=== PATIENT | female | born 1925 | race Caucasian/White ===

== ENCOUNTER → 2016-07-17 | Outpatient (CLI) | payer OTHER ==
[~2016-07-17] MED LIST: ANSHCS PR; DOCU-94 PO; ERGO500037 PO; HERBAL LAXATIVE; IBUP-1277 PO; LSN/10125 PO; LXP10 PO; PRED10TA PO; TRAM-10 PO; XRL20 PO
[2016-07-17 13:17] LABS: BLOOD UREA NITROGEN 22 mg/dl (7-18); BUN/CREATININE RATIO 22.3 (10-20); CARBON DIOXIDE 30 mmol/L (21-32); CHLORIDE 108 mmol/L (98-107); CREATININE 0.99 mg/dl (0.60-1.20); GLUCOSE 109 mg/dl (70-99); POTASSIUM 3.7 mmol/L (3.5-5.1); SODIUM 145 mmol/L (136-145)
== END | disposition home or self-care (01) ==
LOC: C.LABPVFM 08:20
PROVIDERS: ATTEND Nurse Practitioner
DX: E55.9 Vitamin D deficiency, unspecified (principal); I10 Essential (primary) hypertension

== ENCOUNTER 2016-09-01 17:07 | Emergency (ER) | payer OTHER ==
[~2016-09-01 17:07] MED LIST changes: -ANSHCS PR; -DOCU-94 PO; -ERGO500037 PO; -LXP10 PO; -PRED10TA PO; -TRAM-10 PO; -XRL20 PO
[2016-09-01 17:12] VITALS: TEMP 36.4; Ht 162.6 cm
[2016-09-01 18:05] LABS: HEMATOCRIT 50.1 % (37-47); MEAN CORPUSCULAR HEMOGLOBIN 31.9 pg (25-34); MEAN CORPUSCULAR HGB CONC 33.9 g/dl (32-36); MEAN PLATELET VOLUME 10.8 fL (7.4-10.4); PLATELET COUNT 321 K/uL (130-400); RED BLOOD COUNT 5.33 M/uL (4.2-5.4); WHITE BLOOD COUNT 9.34 K/uL (4.8-10.8)
[2016-09-01] MEDS ORDERED: DOCU-94 PO (18:49)
[2016-09-01] MEDS ORDERED: ANSHCS PR (18:49)
--- NOTE | 2016-09-01 18:50 | EMERGENCY ROOM VISIT NOTE ---
History Report prepared by Laura: Shama Carver Under the Supervision of: Dr. Alhaji Beck M.D. First contact with patient: 17:36 Chief Complaint: PAIN (GENERALIZED) Stated Complaint: SCIATICA AND RECTAL PAIN History of Present Illness The patient is a 89 year old female who presents to the Emergency Room with complaints of persistent constipation starting today. She also complains of rectal pain. She has a history of sciatica pain, hemorrhoids, and rectal surgeries. The patient is on Prednisone and Tramadol for sciatic pain. As per [id number], the patient has been feeling depressed since her in 2015. As per [id number], the patient becomes constipated when she is depressed. She tried to disimpact herself without relief. She was given MiraLAX and Milk of Magnesia without relief. She also complains of right hip pain radiating down the back of her right leg. The right hip pain is similar to her past sciatic pain. She is on Xarelto. She denies fevers, chills, or any other complaints. As per [id number], the patient is at her baseline mental status. Source of History: patient Onset: today Position: other (global) Quality: other (constipation) Timing: other (persistent) Modifying Factors (Relieving): other (MiraLAX and Milk of Magnesia without relief) Associated Symptoms: No fevers, No chills Review of Systems All systems have been listed, reviewed, and are negative other than those previously mentioned. Please see Additional Medical History Sheet. Past Medical & Surgical Medical Problems: (1) Benign hypertension (2) Blood Clots (3) Deep venous thrombosis (4) Pulmonary embolism Family History Diabetes mellitus FHx: cancer FHx: heart disease Hypertension Social History Smoking Status: Never Smoker Marital Status: Housing Status: lives with family Occupation Status: retired Current/Historical Medications Scheduled Ergocalciferol (Vitamin D 11121 Unit), 50,000 UNIT PO WK Hctz/Lisinopril (Lisinopril/Hctz 10/12.5 Mg), 1 TAB PO DAILY Prednisone (Prednisone), 0 PO UD Rivaroxaban (Xarelto), 20 MG PO DAILY Scheduled PRN Tramadol (Ultram), 50 MG PO Q8H PRN for Pain Allergies Coded Allergies: Adhesives (Verified Allergy, Intermediate, HIVES, 09/01/16) Morphine (Verified Adverse Reaction, Intermediate, NAUSEA, 09/01/16) Physical Exam Vital Signs Date Time Temp Pulse Resp B/P (MAP) Pulse Ox O2 Delivery O2 Flow Rate FiO2 09/01/16 18:52 84 125/79 96 09/01/16 17:12 36.4 88 18 90/72 93 Room Air Physical Exam GENERAL: Patient awake, alert, oriented x 3. Patient follows commands. Patient does not appear toxic. Patient is adequately hydrated and well- nourished. SKIN: No erythema, pallor, cyanosis or rash HEENT: Normal head, pupils equal, reactive to light and accommodation. Ears normal. LUNGS: Clear to auscultation. No wheezes, no rales, no rhonchi. HEART: No murmurs. No gallops. No rubs ABDOMEN: No masses, no rebound, no hepatomegaly or splenomegaly. RECTAL: Patient has external hemorrhoids which are currently not bleeding. Large amount of rocío-like stool in the rectum. Stool is brown and guaiac positive. EXTREMITIES: No signs of trauma. No pedal or pretibial edema. No calf or thigh tenderness. NEUROLOGIC: Cranial nerves II-XII within normal limits. No gross motor sensory function deficits. Medical Decision & Procedures Laboratory Results 09/01/16 17:55 Test 09/01/16 17:55 Red Blood Count 5.33 M/uL (4.2-5.4) Mean Corpuscular Volume 94.0 fL (80-100) Mean Corpuscular Hemoglobin 31.9 pg (25-34) Mean Corpuscular Hemoglobin Concent 33.9 g/dl (32-36) RDW Standard Deviation 47.1 fL (36.4-46.3) RDW Coefficient of Variation 13.7 % (11.5-14.5) Mean Platelet Volume 10.8 fL (7.4-10.4) Laboratory results as stated above per my review. ED Course 1736: Past medical records reviewed. The patient was evaluated in room A03. A complete history and physical examination was performed. 1916: Upon reevaluation, the patient appeared to have improvement of her symptoms. She had a small bowel movement in the Emergency Room. I discussed today's findings with the patient and her family. They verbalized agreement of the treatment plan. The patient was discharged home. Medical Decision Medication Reconciliation: I attest that I have personally reviewed the patient' s current medication list. Blood pressure Screening: Patient was found to have normal blood pressure on screening and does not require follow up. Differential diagnosis includes but is not limited to sciatica, constipation, anemia. Blood work was evaluated. Please see above. The patient was given a soapsuds enema with some relief. She was given a dose of MiraLAX here. I believe that she will be feeling much better when she has a good bowel movement. The patient was also encouraged to take Colace twice a day. Impression Primary Impression: Constipation Additional Impressions: Hemorrhoids Sciatica Scribe Attestation The scribe's documentation has been prepared under my direction and personally reviewed by me in its entirety. I confirm that the note above accurately reflects all work, treatment, procedures, and medical decision making performed by me. Departure Information Dispostion Home / Self-Care Referrals Bing Rivera C.R.N.P (PCP) Forms HOME CARE DOCUMENTATION FORM, IMPORTANT VISIT INFORMATION, WORK / SCHOOL INSTRUCTIONS Patient Instructions My [facility] Additional Instructions 1 Colace twice a day. Take a dose of MiraLAX if you have not had a bowel movement in the past 24 hours. One rectal suppository twice a day for the next 7 days. Follow-up with your family physician within the next 10 days. Problem Qualifiers
[2016-09-01] MEDS ORDERED: POLYETHYLENE (MIRALAX) 17 GM PACK PO ONE (19:30)
[2016-09-01] MEDS ORDERED: ERGO500037 PO (19:37)
[2016-09-01] MEDS ORDERED: LSN/10125 PO (19:37)
[2016-09-01] MEDS ORDERED: PRED10TA PO (19:38)
[2016-09-01] MEDS ORDERED: TRAM-10 PO (19:38)
[2016-09-01] MEDS ORDERED: XRL20 PO (19:38)
[2016-09-01 20:02] VITALS: BP 112/58; PULSE 73; O2SAT 99
== END 2016-09-01 20:02 | disposition home or self-care (01) ==
LOC: C.EDB 17:09 → C.EDA 20:02
DX: K59.00 Constipation, unspecified (principal); K64.9 Unspecified hemorrhoids; M54.30 Sciatica, unspecified side; I10 Essential (primary) hypertension; Z86.711 Personal history of pulmonary embolism; Z86.718 Personal history of other venous thrombosis and embolism; Z83.3 Family history of diabetes mellitus; Z82.49 Family history of ischemic heart disease and other diseases of the circulatory system; Z79.01 Long term (current) use of anticoagulants; Z79.899 Other long term (current) drug therapy

== ENCOUNTER 2016-09-10 19:25 | Inpatient (IN) | payer OTHER ==
[~2016-09-10] VITALS: Ht 162.6 cm; Wt 61.8 kg
[~2016-09-10 19:25] MED LIST changes: +ERGO500037 PO; -HERBAL LAXATIVE; -IBUP-1277 PO; +PRED10TA PO; +TRAM-10 PO; +XRL20 PO
[2016-09-10] MEDS ORDERED: SODIUM CHLORIDE 0.9% 1000ML 1,000 ML IV ONE (19:48)
[2016-09-10 20:17] LABS: URINE APPEARANCE CLEAR (CLEAR); URINE BILIRUBIN NEG (NEG); URINE COLOR DK YELLOW; URINE EPITHELIAL CELL AUTO >30 /lpf (0-5); URINE NITRITE NEG (NEG); URINE SPECIFIC GRAVITY 1.023 (1.000-1.030); UROBILINOGEN NEG (NEG)
[2016-09-10 20:20] LABS: MANUAL MICROSCOPIC REQUIRED? NO; REVIEW REQ? YES
--- NOTE | 2016-09-10 20:24 | EMERGENCY ROOM VISIT NOTE ---
History Report prepared by Laura: Itz Hodgson Under the Supervision of: Dr. Bean Lin D.O. First contact with patient: 19:37 Chief Complaint: FALL Stated Complaint: MULTI FALLS History of Present Illness The patient is an 89 year old female who presents to the Emergency Room with complaints of intermittent falls occurring this morning. The patient's caregiver states that the patient has been very weak the past couple of days, and the patient fell multiple times this morning. The patient is having rectal pain and abdominal pain from constipation, and she gets dizzy when she stands up and a slight headache. The patient denies any urinary symptoms. The caregiver states that the patient has only had a bottle of Boost today. The patient was recently in the ER for constipation, and she was given an enema. The patient states that she has issues with her feet including bolts in her feet and skin graft and stitches. Source of History: patient, caregiver Onset: this morning Position: other (global) Quality: other (fall) Timing: intermittent Associated Symptoms: + headache, + abdominal pain, No urinary symptoms Note: Associated symptoms: rectal pain and dizziness. Review of Systems See HPI for pertinent positives & negatives. A total of 10 systems reviewed and were otherwise negative. Past Medical & Surgical Medical Problems: (1) Acute diverticulitis (2) Benign hypertension (3) Blood Clots (4) Deep venous thrombosis (5) Hypercalcemia (6) Pulmonary embolism Family History Diabetes mellitus FHx: cancer FHx: heart disease Hypertension Social History Smoking Status: Former Smoker Marital Status: Housing Status: lives with family Occupation Status: retired Current/Historical Medications Scheduled Ergocalciferol (Vitamin D 26529 Unit), 50,000 UNIT PO WK Hctz/Lisinopril (Lisinopril/Hctz 10/12.5 Mg), 1 TAB PO DAILY Rivaroxaban (Xarelto), 20 MG PO DAILY Scheduled PRN Tramadol (Ultram), 50 MG PO Q8H PRN for Pain Allergies Coded Allergies: Adhesives (Verified Allergy, Intermediate, HIVES, 09/10/16) Morphine (Verified Adverse Reaction, Intermediate, NAUSEA, 09/10/16) Physical Exam Vital Signs Date Time Temp Pulse Resp B/P (MAP) Pulse Ox O2 Delivery O2 Flow Rate FiO2 09/10/16 23:11 77 16 94/58 100 09/10/16 23:02 79 09/10/16 22:13 84 18 108/56 97 Room Air 85 106/63 09/10/16 20:57 80 18 100/54 97 Room Air 09/10/16 19:56 Room Air 09/10/16 19:32 79 09/10/16 19:27 36.7 77 18 94/61 98 Room Air Physical Exam GENERAL: Patient is awake, alert, and somewhat frail appearing. EYES: Post-surgical changes noted on the pupils. Mucous membranes are dry. The conjunctivae are clear. The pupils are round and reactive. EARS, NOSE, MOUTH AND THROAT: The nose is without any evidence of any deformity. Mucous membranes are moist tongue is midline NECK: The neck is nontender and supple. RESPIRATORY: Normal respiratory effort is noted there is no evidence of wheezing rhonchi or rales CARDIOVASCULAR: Regular rate and rhythm noted there no murmurs rubs or gallops normal S1 normal S2 GASTROINTESTINAL: The abdomen is mildly distended and diffusely tender. No guarding or rigidity. BACK: No midline tenderness or or step-off noted range of motion in flexion extension as well as rotation no signs of muscle spasm noted MUSCULOSKELETAL/EXTREMITIES: There is no evidence of gross deformity full range of motion is noted in the hips and shoulders SKIN: Pedal edema bilaterally. No signs of cellulitis. NEUROLOGIC: Patient is oriented to person, place, and situation. Follows commands. Strength is diminished symmetrically. Medical Decision & Procedures ER Provider Diagnostic Interpretation: Radiology results as stated below per my review and radiologist interpretation: CT OF THE HEAD WITHOUT CONTRAST CLINICAL HISTORY: Fall. COMPARISON STUDY: MRI of the brain May 22, 2010. TECHNIQUE: Helical axial images of the head were obtained without IV contrast. Automated exposure control was utilized for the study. A dose lowering technique was utilized adhering to the principles of ALARA. FINDINGS: No acute intracranial hemorrhage is present. A heavily calcified extra-axial mass with suprasellar extension is similar to MRI of May 22, 2010. This measures 2.2 x 1.8 cm. There are no additional intracranial masses. Ventricular system is stable. Basilar cisterns are patent. White matter hypodensity suggests small vessel disease. There are no findings to suggest acute dural sinus thrombosis or acute territorial infarct. There is no calvarial fracture. There is mucosal thickening with secretions within the right sphenoid sinus and right posterior ethmoid air cells. This was shown on prior MRI. This is likely chronic. IMPRESSION: 1. No acute intracranial findings. 2. No significant change in the heavily calcified extra-axial mass since MRI of May 22, 2010. This is consistent with a planum sphenoidale meningioma. 3. No calvarial fracture. 4. Right sphenoid and right posterior ethmoid sinusitis which is likely chronic. Electronically signed by: Steve Reyes M.D. 09/10/2016 9:23 PM Dictated Date/Time: 09/10/2016 9:16 PM CHEST ONE VIEW PORTABLE CLINICAL HISTORY: Sepsis. COMPARISON STUDY: Chest radiograph March 20, 2013. 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 A moderate hiatal hernia is noted. Cardiac size is normal. There is no evidence of pulmonary edema. There is no consolidation. No pneumothorax or pleural effusion is identified. IMPRESSION: 1. No acute cardio pelvic findings. 2. Moderate sized hiatal hernia. Electronically signed by: Steve Reyes M.D. 09/10/2016 8:37 PM Dictated Date/Time: 09/10/2016 8:35 PM ANGIO ABD/PELVIS WITH CONTRAST CLINICAL HISTORY: Diffuse abdominal pain. Multiple falls. COMPARISON STUDY: No previous studies for comparison. TECHNIQUE: Helical axial images of the abdomen and pelvis were obtained during arterial phase following intravenous injection of 120 cc of Optiray 320 IV. Sagittal and coronal reconstructions were viewed as well as maximal intensity projections on an independent 3-D workstation. FINDINGS: Visualized portions of the lower chest demonstrate a moderate sized hiatal hernia. Pacer leads are incidentally noted. No pneumatosis, free air or portal venous gas is present. Arterial phase images of the liver, spleen, adrenal glands and pancreas are unremarkable. A 6 mm hypodense left renal lesion is too small to characterize. A 1.3 cm lesion within the midpole of the right kidney measures just above water attenuation. This is probably artifactual. There is no hydronephrosis. There are gallstones within the gallbladder. There is no evidence for a bowel obstruction. There is extensive sigmoid diameter. Ventricular system. There is no convincing evidence for acute diverticulitis although this exam is mildly compromised by motion artifact. There is equivocal infiltration adjacent to the distal descending and proximal sigmoid colon. The appendix is normal. There is a large amount stool within the rectum. There is no pericholecystic infiltration. No acute lumbar spine or pelvic fracture is identified. There is mild atherosclerotic plaque of the abdominal aorta and branch vessels. There is no significant stenosis. There is no dissection. IMPRESSION: 1. Mild atherosclerotic plaque of the abdominal aorta and branch vessels. No significant stenosis. No dissection. Unremarkable CTA of the abdomen and pelvis for age. 2. Large amount stool within the rectum. No bowel obstruction. 3. Extensive sigmoid diverticulosis. No definite evidence for acute diverticulitis. However, equivocal pericolonic infiltration at the junction of the descending colon and sigmoid colon. Mild acute diverticulitis would be difficult to exclude. No free air or abscess. 4. Cholelithiasis. 5. 1.3 cm right renal lesion. This likely reflects a cyst but measures above water attenuation. A follow-up nonemergent renal ultrasound is recommended. Electronically signed by: Steve Reyes M.D. 09/10/2016 9:40 PM Dictated Date/Time: 09/10/2016 9:25 PM Laboratory Results 09/10/16 20:15 Red Blood Count 5.28, Mean Corpuscular Volume 92.4, Mean Corpuscular Hemoglobin 32.4, Mean Corpuscular Hemoglobin Concent 35.0, Mean Platelet Volume 10.5, Neutrophils (%) (Auto) 79.9, Lymphocytes (%) (Auto) 11.7, Monocytes (%) (Auto) 7.3, Eosinophils (%) (Auto) 0.7, Basophils (%) (Auto) 0.1, Neutrophils # (Auto) 11.76, Lymphocytes # (Auto) 1.72, Monocytes # (Auto) 1.08, Eosinophils # (Auto) 0.10, Basophils # (Auto) 0.02 Test 09/10/16 20:00 09/10/16 20:15 09/10/16 20:17 09/10/16 20:44 Urine Color DK YELLOW Urine Appearance CLEAR (CLEAR) Urine pH 7.0 (4.5-7.5) Urine Specific [place] 1.023 (1.000-1.030) Urine Protein NEG (NEG) Urine Glucose (UA) NEG (NEG) Urine Ketones NEG (NEG) Urine Occult Blood NEG (NEG) Urine Nitrite NEG (NEG) Urine Bilirubin NEG (NEG) Urine Urobilinogen NEG (NEG) Urine Leukocyte Esterase MODERATE (NEG) Urine WBC (Auto) 5-10 /hpf (0-5) Urine RBC (Auto) 0-4 /hpf (0-4) Urine Hyaline Casts (Auto) 1-5 /lpf (0-5) Urine Epithelial Cells (Auto) >30 /lpf (0-5) Urine Bacteria (Auto) 1+ (NEG) White Blood Count 14.73 K/uL (4.8-10.8) Red Blood Count 5.28 M/uL (4.2-5.4) Hemoglobin 17.1 g/dL (12.0-16.0) Hematocrit 48.8 % (37-47) Mean Corpuscular Volume 92.4 fL (80-100) Mean Corpuscular Hemoglobin 32.4 pg (25-34) Mean Corpuscular Hemoglobin Concent 35.0 g/dl (32-36) Platelet Count 318 K/uL (130-400) Mean Platelet Volume 10.5 fL (7.4-10.4) Neutrophils (%) (Auto) 79.9 % Lymphocytes (%) (Auto) 11.7 % Monocytes (%) (Auto) 7.3 % Eosinophils (%) (Auto) 0.7 % Basophils (%) (Auto) 0.1 % Neutrophils # (Auto) 11.76 K/uL (1.4-6.5) Lymphocytes # (Auto) 1.72 K/uL (1.2-3.4) Monocytes # (Auto) 1.08 K/uL (0.11-0.59) Eosinophils # (Auto) 0.10 K/uL (0-0.5) Basophils # (Auto) 0.02 K/uL (0-0.2) RDW Standard Deviation 46.0 fL (36.4-46.3) RDW Coefficient of Variation 13.7 % (11.5-14.5) Immature Granulocyte % (Auto) 0.3 % Immature Granulocyte # (Auto) 0.05 K/uL (0.00-0.02) Erythrocyte Sedimentation Rate 9 mm/hr (0-21) Phosphorus Level 1.4 mg/dl (2.5-4.9) Magnesium Level 2.1 mg/dl (1.8-2.4) Total Bilirubin 0.7 mg/dl (0.2-1) Aspartate Amino Transf (AST/SGOT) 24 U/L (15-37) Alanine Aminotransferase (ALT/SGPT) 30 U/L (12-78) Alkaline Phosphatase 81 U/L (45-117) Total Creatine Kinase 43 U/L (26-192) Creatine Kinase MB < 0.5 ng/ml (0.5-3.6) Creatine Kinase MB Ratio (0-3.0) Troponin I < 0.015 ng/ml (0-0.045) C-Reactive Protein < 0.29 mg/dl (0-0.29) Pro-B-Type Natriuretic Peptide 320 pg/ml (0-1800) Total Protein 6.7 gm/dl (6.4-8.2) Albumin 3.4 gm/dl (3.4-5.0) Globulin 3.3 gm/dl (2.5-4.0) Albumin/Globulin Ratio 1.0 (0.9-2) Lipase 216 U/L (73-393) Bedside Lactic Acid Venous 3.74 mmol/L (0.90-1.70) Prothrombin Time 12.4 SECONDS (9.0-12.0) Prothromb Time International Ratio 1.2 (0.9-1.1) Activated Partial Thromboplast Time 27.5 SECONDS (21.0-31.0) Partial Thromboplastin Ratio 1.1 Laboratory results per my review. Medications Administered Medications (Trade) Dose Ordered Sig/Jacqueline Route Start Time Stop Time Status Last Admin Dose Admin Sodium Chloride 1,000 ml @ 999 mls/hr Q1H1M ONCE IV 09/10/16 19:48 09/10/16 20:48 DC 09/10/16 20:33 999 MLS/HR Levofloxacin (Levaquin / D5W) 750 mg NOW STAT IV 09/10/16 21:52 09/10/16 21:54 DC 09/10/16 22:09 750 MG Metronidazole (Flagyl / Nss) 500 mg NOW STAT IV 09/10/16 21:52 09/10/16 21:54 DC 09/10/16 22:09 500 MG ECG Indication: other (fall) Rate (beats per minute): 75 Rhythm: other (Atrial-sensed paced ) Findings: other (No elem beats, no PVC) Comparison ECG Date: 10/30/12 Change: no significant change ED Course 1936: The patient was evaluated in room A12. A complete history and physical examination were performed. 1947: NSS 1,000 ml @ 999 mls/hr IV 215: Metronidazole 500mg IV, Levofloxacin 750mg IV 2200: I reevaluated the patient, and she was resting 2242: I discussed the patient's case with Rosey Stark, and he is going to evaluate the patient for further treatment. Medical Decision Differential diagnosis: Etiologies such as metabolic, infection, hypo/hyperglycemia, electrolyte abnormalities, cardiac sources, intracerebral event, toxicologic, neurologic, as well as others were entertained. Nursing notes reviewed. Additional history is obtained from the patient's caregivers as well as the patient's family members. The patient is an 89-year-old female who presented to the emergency department for abdominal pain and constipation. The patient had hypotension in the emergency department. She was treated with IV fluids in the emergency department. She was also treated with IV antibiotics because of the possibility of diverticulitis on CAT scan. I discussed the patient's laboratory and radiographic studies with her and her family members. Because of her ongoing symptoms and hypotension I discussed her case with the on-call [facility] hospitalist group. They've agreed to evaluate the patient in the emergency department for further management and disposition. Medication Reconcilliation Current Medication List: was personally reviewed by me Blood Pressure Screening Patient's blood pressure: Low blood pressure Consults Time Called: [phone] Consulting Physician: Rosey Stark Returned Call: [phone] I discussed the patient's case with Rosey Stark, and he is going to evaluate the patient for further treatment. Impression Primary Impression: Diverticulitis Additional Impressions: Hypotension Hypophosphatemia Abdominal pain Orthostatic hypotension Scribe Attestation The scribe's documentation has been prepared under my direction and personally reviewed by me in its entirety. I confirm that the note above accurately reflects all work, treatment, procedures, and medical decision making performed by me. Departure Information Dispostion Being Evaluated By Hospitalist Referrals Bing Rivera, C.R.N.P (PCP) Patient Instructions My [facility] Problem Qualifiers Primary Impression: Diverticulitis Diverticulitis site: unspecified part of intestinal tract Diverticulitis bleeding: unspecified bleeding status Diverticulitis complication: without perforation or abscess Qualified Codes: K57.92 - Diverticulitis of intestine, part unspecified, without perforation or abscess without bleeding Additional Impressions: Hypotension Hypotension type: unspecified hypotension type Qualified Codes: I95.9 - Hypotension, unspecified Abdominal pain Abdominal location: unspecified location Qualified Codes: R10.9 - Unspecified abdominal pain
[2016-09-10 20:27] LABS: BASO % 0.1 %; BASO ABS # 0.02 K/uL (0-0.2); COMPLETE YES; EOS % 0.7 %; HEMATOCRIT 48.8 % (37-47); IG% 0.3 %; LYMPH % 11.7 %; LYMPH ABS # 1.72 K/uL (1.2-3.4); MEAN CELL VOLUME 92.4 fL (80-100); MEAN CORPUSCULAR HEMOGLOBIN 32.4 pg (25-34); MEAN PLATELET VOLUME 10.5 fL (7.4-10.4); MONO % 7.3 %; NEUT % 79.9 %; PLATELET COUNT 318 K/uL (130-400); RED BLOOD COUNT 5.28 M/uL (4.2-5.4); WHITE BLOOD COUNT 14.73 K/uL (4.8-10.8)
--- NOTE | 2016-09-10 20:38 | DIAGNOSTIC IMAGING REPORT ---
CHEST ONE VIEW PORTABLE CLINICAL HISTORY: Sepsis. COMPARISON STUDY: Chest radiograph March 20, 2013. 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 A moderate hiatal hernia is noted. Cardiac size is normal. There is no evidence of pulmonary edema. There is no consolidation. No pneumothorax or pleural effusion is identified. IMPRESSION: 1. No acute cardio pelvic findings. 2. Moderate sized hiatal hernia. Electronically signed by: Steve Reyes M.D. 09/10/2016 8:37 PM Dictated Date/Time: 09/10/2016 8:35 PM
[2016-09-10] MEDS ORDERED: OPTIRAY 320 IV PRN (20:45)
[2016-09-10 20:46] LABS: ZZURINE CULT IF INDIC CATH YES
[2016-09-10 20:59] LABS: ALKALINE PHOSPHATASE 81 U/L (45-117); ALT/SGPT 30 U/L (12-78); AST/SGOT 24 U/L (15-37); BLOOD UREA NITROGEN 39 mg/dl (7-18); BUN/CREATININE RATIO 30.2 (10-20); C-REACTIVE PROTEIN < 0.29 mg/dl (0-0.29); CARBON DIOXIDE 27 mmol/L (21-32); CHLORIDE 100 mmol/L (98-107); GLUCOSE 127 mg/dl (70-99); MAGNESIUM 2.1 mg/dl (1.8-2.4); POTASSIUM 3.4 mmol/L (3.5-5.1); SODIUM 136 mmol/L (136-145)
[2016-09-10 21:00] LABS: PHOSPHORUS 1.4 mg/dl (2.5-4.9)
[2016-09-10 21:04] LABS: INR 1.2 (0.9-1.1); PARTIAL THROMBOPLASTIN RATIO 1.1; PROTHROMBIN TIME (PATIENT) 12.4 SECONDS (9.0-12.0)
--- NOTE | 2016-09-10 21:25 | DIAGNOSTIC IMAGING REPORT ---
CT OF THE HEAD WITHOUT CONTRAST CLINICAL HISTORY: Fall. COMPARISON STUDY: MRI of the brain May 22, 2010. TECHNIQUE: Helical axial images of the head were obtained without IV contrast. Automated exposure control was utilized for the study. A dose lowering technique was utilized adhering to the principles of ALARA. FINDINGS: No acute intracranial hemorrhage is present. A heavily calcified extra-axial mass with suprasellar extension is similar to MRI of May 22, 2010. This measures 2.2 x 1.8 cm. There are no additional intracranial masses. Ventricular system is stable. Basilar cisterns are patent. White matter hypodensity suggests small vessel disease. There are no findings to suggest acute dural sinus thrombosis or acute territorial infarct. There is no calvarial fracture. There is mucosal thickening with secretions within the right sphenoid sinus and right posterior ethmoid air cells. This was shown on prior MRI. This is likely chronic. IMPRESSION: 1. No acute intracranial findings. 2. No significant change in the heavily calcified extra-axial mass since MRI of May 22, 2010. This is consistent with a planum sphenoidale meningioma. 3. No calvarial fracture. 4. Right sphenoid and right posterior ethmoid sinusitis which is likely chronic. Electronically signed by: Steve Reyes M.D. 09/10/2016 9:23 PM Dictated Date/Time: 09/10/2016 9:16 PM
--- NOTE | 2016-09-10 21:41 | DIAGNOSTIC IMAGING REPORT ---
ANGIO ABD/PELVIS WITH CONTRAST CLINICAL HISTORY: Diffuse abdominal pain. Multiple falls. COMPARISON STUDY: No previous studies for comparison. TECHNIQUE: Helical axial images of the abdomen and pelvis were obtained during arterial phase following intravenous injection of 120 cc of Optiray 320 IV. Sagittal and coronal reconstructions were viewed as well as maximal intensity projections on an independent 3-D workstation. FINDINGS: Visualized portions of the lower chest demonstrate a moderate sized hiatal hernia. Pacer leads are incidentally noted. No pneumatosis, free air or portal venous gas is present. Arterial phase images of the liver, spleen, adrenal glands and pancreas are unremarkable. A 6 mm hypodense left renal lesion is too small to characterize. A 1.3 cm lesion within the midpole of the right kidney measures just above water attenuation. This is probably artifactual. There is no hydronephrosis. There are gallstones within the gallbladder. There is no evidence for a bowel obstruction. There is extensive sigmoid diameter. Ventricular system. There is no convincing evidence for acute diverticulitis although this exam is mildly compromised by motion artifact. There is equivocal infiltration adjacent to the distal descending and proximal sigmoid colon. The appendix is normal. There is a large amount stool within the rectum. There is no pericholecystic infiltration. No acute lumbar spine or pelvic fracture is identified. There is mild atherosclerotic plaque of the abdominal aorta and branch vessels. There is no significant stenosis. There is no dissection. IMPRESSION: 1. Mild atherosclerotic plaque of the abdominal aorta and branch vessels. No significant stenosis. No dissection. Unremarkable CTA of the abdomen and pelvis for age. 2. Large amount stool within the rectum. No bowel obstruction. 3. Extensive sigmoid diverticulosis. No definite evidence for acute diverticulitis. However, equivocal pericolonic infiltration at the junction of the descending colon and sigmoid colon. Mild acute diverticulitis would be difficult to exclude. No free air or abscess. 4. Cholelithiasis. 5. 1.3 cm right renal lesion. This likely reflects a cyst but measures above water attenuation. A follow-up nonemergent renal ultrasound is recommended. Electronically signed by: Steve Reyes M.D. 09/10/2016 9:40 PM Dictated Date/Time: 09/10/2016 9:25 PM
[2016-09-10] MEDS ORDERED: METRONIDAZOLE 500MG / 100ML NSS IV STA (21:52)
[2016-09-10] MEDS ORDERED: LEVAQUIN 750MG / 150ML D5W IV STA (21:52)
[2016-09-10] MEDS ORDERED: ONDANSETRON INJ 2 MG/ML 2 ML VIAL IV PRN (23:45)
[2016-09-10] MEDS ORDERED: ACETAMINOPHEN 325 MG TAB PO PRN (23:45)
--- NOTE | 2016-09-10 23:52 | History and Physical ---
History & Physical Date & Time of Service: Sep 10, 2016 at 23:52 Chief Complaint: Multi Falls Primary Care Physician: Bing Rivera C.R.N.P History of Present Illness Source: patient, family (daughter), hospital records Mrs Walsh is an 89 year old female with history of complete heart block s/p pacemaker insertion who presents to the ER status post fall. She does not remember falling earlier today and cannot tell me why she is in the ER. She is disorientated to time and place. She recognizes her daughter and can hold a complete and appropriate conversation but her memory of events earlier and her medical history are absent. She denies any pain, shortness of breath, headache, urinary symptoms, diarrhea, constipation, GI bleeding or cough. She denies any hip, wrist or back pain. She tells me she just wants to go to sleep. Her daughter by the bedside was not there at the time of the fall as the patient lives alone and reports she was found by a friend/neighbor who called for an ambulance to take her in. She has not seen her mother for the last few months but believes her current memory and confusion is off of her baseline. As per the ER note the carer was previous present and notes that she has been having intermittent falls and generally weak for the past few days. Complaining of rectal pain, abdominal pain and dizziness on standing with a slight headache. Her oral intake has also decreased only having 1 Boost drink today. Past Medical/Surgical History Medical Problems: (1) Benign hypertension Status: Chronic (2) Blood Clots Status: Chronic (3) Deep venous thrombosis Status: Chronic (4) Pulmonary embolism Status: Chronic Complete heart block s/p pacemaker insertion Family History Diabetes mellitus FHx: cancer FHx: heart disease Hypertension Social History Smoking Status: Former Smoker Smokeless Tobacco Use: No Alcohol Use: none Drug Use: none Marital Status: Housing status: lives with family Occupational Status: retired Immunizations History of Influenza Vaccine: Yes History of Tetanus Vaccine?: Yes Tetanus Immunization Date: Jun 10, 2002 History of Pneumococcal: No History of Hepatitis B Vaccine: No Multi-Drug Resistant Organisms History of MDRO: No Allergies Coded Allergies: Adhesives (Verified Allergy, Intermediate, HIVES, 09/10/16) Morphine (Verified Adverse Reaction, Intermediate, NAUSEA, 09/10/16) Home Medications Scheduled Ergocalciferol (Vitamin D 07594 Unit), 50,000 UNIT PO WK Hctz/Lisinopril (Lisinopril/Hctz 10/12.5 Mg), 1 TAB PO DAILY Rivaroxaban (Xarelto), 20 MG PO DAILY Scheduled PRN Tramadol (Ultram), 50 MG PO Q8H PRN for Pain Review of Systems Constitutional: No fever, No chills Eyes: No worsening of vision ENT: + hearing loss (chronic, no worse than usual) Respiratory: No cough, No wheezing, No shortness of breath Cardiovascular: No chest pain, No edema, No palpitations Abdomen: No pain, No nausea, No vomiting, No diarrhea, No constipation, No GI bleeding Musculoskeletal: No joint pain, No muscle pain Genitourinary - Female: No dysuria, No urinary frequency, No urinary urgency, No urinary incontinence, No urinary retention Hematologic / Lymphatic: No abnormal bleeding/bruising Integumentary: No rash, No itch Physical Exam Vital Signs Date Time Temp Pulse Resp B/P (MAP) Pulse Ox O2 Delivery O2 Flow Rate FiO2 09/10/16 23:11 77 16 94/58 100 09/10/16 23:02 79 09/10/16 22:13 84 18 108/56 97 Room Air 85 106/63 09/10/16 20:57 80 18 100/54 97 Room Air 09/10/16 19:56 Room Air 09/10/16 19:32 79 09/10/16 19:27 36.7 77 18 94/61 98 Room Air General Appearance: no apparent distress, + thin Head: normocephalic, atraumatic Eyes: normal inspection, EOMI, + pertinent finding (post surgical unequal pupils but both reactive to light) ENT: normal ENT inspection, pharynx normal Neck: supple, no JVD, trachea midline Respiratory/Chest: chest non-tender, no respiratory distress, no accessory muscle use, + crackles (bibasal fine, no wheezing) Cardiovascular: regular rate, rhythm, no edema, no murmur, normal peripheral pulses Abdomen/GI: normal bowel sounds, soft, + tenderness (generalized abdomin, no guarding or rebound) Back: normal inspection, no CVA tenderness, + pertinent finding (no central spinal tenderness) Extremities/Musculoskelatal: no calf tenderness, normal capillary refill, no pedal edema Neurologic/Psych: general administrator II-XII nml as tested (no facial droop), no motor/sensory deficits (grossly moving all extremities), alert, + disoriented (to time and place, orientated to person) Skin: normal color, warm/dry, no rash Diagnostics Laboratory Results Results Past 24 Hours Test 09/10/16 20:00 09/10/16 20:15 09/10/16 20:17 09/10/16 20:44 Range/Units Urine Color DK YELLOW Urine Appearance CLEAR CLEAR Urine pH 7.0 4.5-7.5 Urine Specific [place] 1.023 1.000-1.030 Urine Protein NEG NEG Urine Glucose (UA) NEG NEG Urine Ketones NEG NEG Urine Occult Blood NEG NEG Urine Nitrite NEG NEG Urine Bilirubin NEG NEG Urine Urobilinogen NEG NEG Urine Leukocyte Esterase MODERATE NEG Urine WBC (Auto) 5-10 0-5 /hpf Urine RBC (Auto) 0-4 0-4 /hpf Urine Hyaline Casts (Auto) 1-5 0-5 /lpf Urine Epithelial Cells (Auto) >30 0-5 /lpf Urine Bacteria (Auto) 1+ NEG White Blood Count 14.73 4.8-10.8 K/uL Red Blood Count 5.28 4.2-5.4 M/uL Hemoglobin 17.1 12.0-16.0 g/dL Hematocrit 48.8 37-47 % Mean Corpuscular Volume 92.4 80-100 fL Mean Corpuscular Hemoglobin 32.4 25-34 pg Mean Corpuscular Hemoglobin Concent 35.0 32-36 g/dl Platelet Count 318 130-400 K/uL Mean Platelet Volume 10.5 7.4-10.4 fL Neutrophils (%) (Auto) 79.9 % Lymphocytes (%) (Auto) 11.7 % Monocytes (%) (Auto) 7.3 % Eosinophils (%) (Auto) 0.7 % Basophils (%) (Auto) 0.1 % Neutrophils # (Auto) 11.76 1.4-6.5 K/uL Lymphocytes # (Auto) 1.72 1.2-3.4 K/uL Monocytes # (Auto) 1.08 0.11-0.59 K/uL Eosinophils # (Auto) 0.10 0-0.5 K/uL Basophils # (Auto) 0.02 0-0.2 K/uL RDW Standard Deviation 46.0 36.4-46.3 fL RDW Coefficient of Variation 13.7 11.5-14.5 % Immature Granulocyte % (Auto) 0.3 % Immature Granulocyte # (Auto) 0.05 0.00-0.02 K/uL Erythrocyte Sedimentation Rate 9 0-21 mm/hr Sodium Level 136 136-145 mmol/L Potassium Level 3.4 3.5-5.1 mmol/L Chloride Level 100 98-107 mmol/L Carbon Dioxide Level 27 21-32 mmol/L Anion Gap 9.0 3-11 mmol/L Blood Urea Nitrogen 39 7-18 mg/dl Creatinine 1.30 0.60-1.20 mg/dl Est Creatinine Clear Calc Drug Dose 25.8 ml/min Estimated GFR () 42.4 Estimated GFR (Non- 36.6 BUN/Creatinine Ratio 30.2 10-20 Random Glucose 127 70-99 mg/dl Calcium Level 11.0 8.5-10.1 mg/dl Phosphorus Level 1.4 2.5-4.9 mg/dl Magnesium Level 2.1 1.8-2.4 mg/dl Total Bilirubin 0.7 0.2-1 mg/dl Aspartate Amino Transf (AST/SGOT) 24 15-37 U/L Alanine Aminotransferase (ALT/SGPT) 30 12-78 U/L Alkaline Phosphatase 81 45-117 U/L Total Creatine Kinase 43 26-192 U/L Creatine Kinase MB < 0.5 0.5-3.6 ng/ml Creatine Kinase MB Ratio 0-3.0 Troponin I < 0.015 0-0.045 ng/ml C-Reactive Protein < 0.29 0-0.29 mg/dl Pro-B-Type Natriuretic Peptide 320 0-1800 pg/ml Total Protein 6.7 6.4-8.2 gm/dl Albumin 3.4 3.4-5.0 gm/dl Globulin 3.3 2.5-4.0 gm/dl Albumin/Globulin Ratio 1.0 0.9-2 Lipase 216 73-393 U/L Bedside Lactic Acid Venous 3.74 0.90-1.70 mmol/L Prothrombin Time 12.4 9.0-12.0 SECONDS Prothromb Time International Ratio 1.2 0.9-1.1 Activated Partial Thromboplast Time 27.5 21.0-31.0 SECONDS Partial Thromboplastin Ratio 1.1 Microbiology Results 09/10/16 Blood Culture, Received Pending 09/10/16 Blood Culture, Received Pending 09/10/16 Urine Culture, Received Pending Diagnostic Radiology CHEST ONE VIEW PORTABLE CLINICAL HISTORY: Sepsis. COMPARISON STUDY: Chest radiograph March 20, 2013. 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 A moderate hiatal hernia is noted. Cardiac size is normal. There is no evidence of pulmonary edema. There is no consolidation. No pneumothorax or pleural effusion is identified. IMPRESSION: 1. No acute cardio pelvic findings. 2. Moderate sized hiatal hernia. Electronically signed by: Steve Reyes M.D. 09/10/2016 8:37 PM Dictated Date/Time: 09/10/2016 8:[address] OF THE HEAD WITHOUT CONTRAST CLINICAL HISTORY: Fall. COMPARISON STUDY: MRI of the brain May 22, 2010. TECHNIQUE: Helical axial images of the head were obtained without IV contrast. Automated exposure control was utilized for the study. A dose lowering technique was utilized adhering to the principles of ALARA. FINDINGS: No acute intracranial hemorrhage is present. A heavily calcified extra-axial mass with suprasellar extension is similar to MRI of May 22, 2010. This measures 2.2 x 1.8 cm. There are no additional intracranial masses. Ventricular system is stable. Basilar cisterns are patent. White matter hypodensity suggests small vessel disease. There are no findings to suggest acute dural sinus thrombosis or acute territorial infarct. There is no calvarial fracture. There is mucosal thickening with secretions within the right sphenoid sinus and right posterior ethmoid air cells. This was shown on prior MRI. This is likely chronic. IMPRESSION: 1. No acute intracranial findings. 2. No significant change in the heavily calcified extra-axial mass since MRI of May 22, 2010. This is consistent with a planum sphenoidale meningioma. 3. No calvarial fracture. 4. Right sphenoid and right posterior ethmoid sinusitis which is likely chronic. Electronically signed by: Steve Reyes M.D. 09/10/2016 9:23 PM Dictated Date/Time: 09/10/2016 9:16 PM EKG Atrial-sensed ventricular-paced rhythm No change from prior EKG (30 Oct 2012) Impression Assessment and Plan 89 year old with complete heart block status post pacemaker insertion status post fall. CT findings suggestive of diverticulitis. Metabolic encephalopathy - stable meningioma on CT head otherwise nill acute - monitor closely for changing neurological symptoms as she is taking rivaroxaban - suspect secondary to infection below Fall - cause: unclear as no real history to go on (mention in ER notes of dizziness on standing however). likely orthostatic due to infection below. We will also get a pacemaker interrogation to check for arrhythmias however. - stop antihypertensives and get orthostatics when she starts to ambulate - effect: no apparent injuries from the fall on examination but given metabolic encephalopathy and rivaroxaban use if unable to ambulate in the morning consider hip XRs Acute diverticulitis - NPO - IVF NSS + 40 mmol K for hydration - Treat with Levaquin and metronidazole IV as started in the ER - blood and urine cultures pending Elevated lactic acid - repeat after IVF given to check it is trending down. Likely due to dehydration and acute infection as above Hypokalemia - on thiazide diuretic - replace with IVF as above - hold HCZT Hypercalcemia / Hypophosphatemia - currently on vitamin D supplementation - recheck Ca to check if still high after IVF bolus int he ER - check PTH - treat based upon repeat labs HTN - currently hypotensive therefore will hold her lisinopril and HCZT Hx DVT/PE - continue rivaroxaban Code - Full as per patient wishes VTE prophylaxis - rivaroxaban Disposition - admit to med/surg Attending Addendum: I have physically seen and examined this patient, have supervised the medical residents activities, and agree with the H&P as noted above with the following exceptions: NONE The patient is awake, alert and oriented 1, normocephalic and atraumatic, lying in bed and in no acute distress. HEENT-- mucous membranes and oropharynx dry. Neck-- no JVD or bruits, thyroid normal, trachea midline, no adenopathy. Heart--normal S1 and S2, no extra beats, no murmurs, rubs or gallops. Lungs--overall diminished with crackles at the bases bilaterally, no respiratory distress, no accessory muscle use. Abdomen--normal bowel sounds and soft, mild generalized abdominal discomfort. Extremities--no cyanosis, clubbing or edema. There are good distal pulses b/l. Dermatologic--normal skin turgor, normal color, warm and dry, no abnormal lymph nodes, no rash. Neurologic--cranial nerves II through XII grossly intact. Rheumatologic--normal range of motion for age group. Psychiatric--normal affect. Assessment and Plan: 1. Diverticulitis/lactic acidosis--the patient will be admitted to the medical surgical floor as a full resuscitation. Nothing by mouth status. Rehydrate with normal saline with KCl 20 mEq at 100 mils per hour. Continue Levaquin 500 mg IV daily and metronidazole 500 mg IV every 8 hours begun in the emergency department. Follow blood culture and urine cultures. Repeat lactic acid levels. Hypokalemia secondary to HCTZ. Replete with IV fluids as noted above, and follow serial BMP and magnesium levels. HCTZ on hold. Hypercalcemia/hypophosphatemia--IV fluid rehydration, check 25-hydroxy vitamin D level and PTH level. Level of Care Med/Surg Advanced Directives Existing Advance Directive: No Existing Living Will: Yes Existing Power of Mortgage Broker: Yes Resuscitation Status FULL RESUSCITATION VTE Prophylaxis VTE Risk Assessment Done? Y/N: Yes Risk Level: High Given or contraindicated: Other Anticoagulation Additional Copies To Bing Rivera, C.R.N.P Resident Tracking Resident Involvement: Resident Care Provided Care Provided: Adult ED
[2016-09-11] MEDS ORDERED: TRAMADOL HCL 50 MG TAB PO PRN
[2016-09-11 00:30] VITALS: BP 120/77; PULSE 69; TEMP 36.6; O2SAT 97; Ht 162.6 cm; Wt 61.8 kg
[2016-09-11 00:48] LABS: CALCIUM 9.6 mg/dl (8.5-10.1); CREATININE 1.1 mg/dl (0.60-1.20); POTASSIUM 3.1 mmol/L (3.5-5.1)
[2016-09-11 01:16] VITALS: BP 120/77; PULSE 69; TEMP 36.6; O2SAT 97
[2016-09-11] MEDS ORDERED: SODIUM CHLORIDE 0.9% 1000ML 1,000 ML IV STA (01:30)
[2016-09-11] MEDS ORDERED: PNEUMOCOCCAL POLYSACCHARIDES 25 MCG/0.5 ML VIAL/SYR IM. ONE (02:00)
[2016-09-11] MEDS ORDERED: PNEUMOCOCCAL ADMINISTRATION CHARGE ONE (02:00)
[2016-09-11] MEDS ORDERED: POTASSIUM CHLORIDE INJ 40 MEQ in SODIUM CHLORIDE 0.9% 1000ML 1,000 ML IV ONE (02:31)
[2016-09-11] MEDS: METRONIDAZOLE / NSS 500 MG in PREMIXED NSS 100 ML IV SCH ×2 (06:17→14:28)
[2016-09-11 06:36] LABS: BASO % 0.1 %; BASO ABS # 0.01 K/uL (0-0.2); COMPLETE YES; EOS % 1.5 %; HEMATOCRIT 42.2 % (37-47); IG% 0.3 %; LYMPH % 20.8 %; LYMPH ABS # 2.47 K/uL (1.2-3.4); MEAN CELL VOLUME 92.5 fL (80-100); MEAN CORPUSCULAR HEMOGLOBIN 31.8 pg (25-34); MEAN CORPUSCULAR HGB CONC 34.4 g/dl (32-36); MEAN PLATELET VOLUME 10.2 fL (7.4-10.4); MONO % 9.8 %; NEUT % 67.5 %; PLATELET COUNT 248 K/uL (130-400); RED BLOOD COUNT 4.56 M/uL (4.2-5.4); WHITE BLOOD COUNT 11.88 K/uL (4.8-10.8)
[2016-09-11 06:43] LABS: INR 1.2 (0.9-1.1)
[2016-09-11 07:14] LABS: BUN/CREATININE RATIO 31.4 (10-20); CALCIUM 8.6 mg/dl (8.5-10.1); CREATININE 0.9 mg/dl (0.60-1.20); POTASSIUM 3.2 mmol/L (3.5-5.1)
[2016-09-11 07:29] LABS: PHOSPHORUS 1.3 mg/dl (2.5-4.9)
[2016-09-11 07:50] VITALS: BP 97/61; PULSE 76; TEMP 36.5; O2SAT 98
[2016-09-11] MEDS ORDERED: POTASSIUM CHLORIDE 10 MEQ TABCR PO STA (08:04)
[2016-09-11] MEDS ORDERED: POTASSIUM PHOS 3 MMOL/1 ML INFUSION IV STA (08:04)
--- NOTE | 2016-09-11 08:14 | DIAGNOSTIC IMAGING REPORT ---
(RENAL)RETROPERITON COMP CLINICAL HISTORY: 89 years-old Female presenting with 1.3cm right renal lesion, recommended renal US. TECHNIQUE: Real-time grayscale and limited color Doppler ultrasound imaging of the kidneys and bladder was performed. COMPARISON: CT performed the previous day. FINDINGS: Right kidney: Normal echogenicity. Right kidney measures 9.0 cm. No hydronephrosis. 1.9 x 1.3 x 1.4 exophytic cyst in the interpolar region, which is anechoic and simple appearing. Left kidney: Normal echogenicity. Left kidney measures 10.4 cm. No hydronephrosis. 0.9 x 0.9 x 0.9 cm anechoic simple cyst at the lower pole. Bladder: No bladder wall thickening. Nonvisualization of ureteral jets. Other: None. IMPRESSION: 1. The clinically queried lesion in the right kidney is consistent with a simple cyst. Elevated density on CT could relate to volume averaging or minimal proteinaceous content. No suspicious renal mass. Electronically signed by: Cruz Augustin M.D. 09/11/2016 8:13 AM Dictated Date/Time: 09/11/2016 8:10 AM
[2016-09-11] MEDS ORDERED: POTASSIUM PHOSPHATE INJ 21 MMOL in SODIUM CHLORIDE 0.9% 500ML 500 ML IV SCH (08:30)
[2016-09-11 15:53] VITALS: BP 114/73; PULSE 85; TEMP 36.9; O2SAT 96
[2016-09-11] MEDS ORDERED: POLYETHYLENE (MIRALAX) 17 GM PACK PO ONE (17:00)
[2016-09-11] MEDS: RIVAROXABAN 20 MG TAB PO SCH (17:21)
--- NOTE | 2016-09-11 17:57 | Family Medicine Progress Note ---
Progress Note Date of Service Sep 11, 2016. Subjective Pt evaluation today including: conversation w/ patient, physical exam, chart review, lab review, review of studies Pain: no pain reported this morning Voiding: no voiding problems, no incontinence Patient was resting comfortably in bed this morning with no acute complaints. Patient states that when she was at home she went to the washroom with her bare feet and slipped because the floor was wet. She lives at home by herself although on the same property her son lives across the street. Her son is currently on vacation which is why her other daughter who does not very frequently see her brought her in and was stating that she seemed a little altered. The patient also states that she doesn't really want to go home because her in April 2015. The patient says though that eventually she would like to go home and thinks that she has a good living situation with her son. Constitutional: No fever, No chills Respiratory: No cough, No wheezing, No shortness of breath Cardiovascular: No chest pain, No palpitations Abdomen: No pain, No nausea, No vomiting, No diarrhea, No constipation Female : No dysuria Neurologic: + weakness, No numbness/tingling, No balance problems Medications Current Inpatient Medications Medications (Trade) Dose Ordered Sig/Jacqueline Route Start Time Stop Time Status Last Admin Dose Admin Ioversol (Optiray 320) 100 ml UD PRN IV 09/10/16 20:45 09/14/16 20:44 Acetaminophen (Tylenol Tab) 650 mg Q4H PRN PO 09/10/16 23:45 10/10/16 23:44 Ondansetron HCl (Zofran Inj) 4 mg Q6H PRN IV 09/10/16 23:45 10/10/16 23:44 Rivaroxaban (Xarelto Tab) 20 mg DAILY@1800 PO 09/11/16 18:00 10/11/16 17:59 09/11/16 17:21 20 MG Tramadol HCl (Ultram Tab) 50 mg Q8H PRN PO 09/11/16 00:00 10/11/16 00:00 09/11/16 16:04 50 MG Polyethylene (Miralax Powder Packet) 17 gm DAILY PO 09/12/16 09:00 10/12/16 08:59 Objective Vital Signs Date Time Temp Pulse Resp B/P (MAP) Pulse Ox O2 Delivery O2 Flow Rate FiO2 09/11/16 15:53 36.9 85 18 114/73 (87) 96 Room Air 09/11/16 07:50 36.5 76 16 97/61 (73) 98 Room Air 09/11/16 01:16 36.6 69 18 120/77 (91) 97 Room Air 09/11/16 00:30 36.6 69 18 120/77 97 Room Air 09/11/16 00:26 72 16 94/58 99 09/10/16 23:11 77 16 94/58 100 09/10/16 23:02 79 09/10/16 22:13 84 18 108/56 97 Room Air 85 106/63 09/10/16 20:57 80 18 100/54 97 Room Air 09/10/16 19:56 Room Air 09/10/16 19:32 79 09/10/16 19:27 36.7 77 18 94/61 98 Room Air Physical Exam General Appearance: WD/WN, no apparent distress Eyes: normal inspection, sclerae normal Respiratory/Chest: chest non-tender, lungs clear, normal breath sounds Cardiovascular: regular rate, rhythm, no edema, no gallop Abdomen: normal bowel sounds, non tender, soft Extremities: normal range of motion, non-tender, normal inspection, no calf tenderness Neurologic/Psychiatric: alert, normal mood/affect, oriented x 3 Laboratory Results Results Past 24 Hours Test 09/10/16 20:00 09/10/16 20:15 09/10/16 20:17 09/10/16 20:44 Range/Units Urine Color DK YELLOW Urine Appearance CLEAR CLEAR Urine pH 7.0 4.5-7.5 Urine Specific [place] 1.023 1.000-1.030 Urine Protein NEG NEG Urine Glucose (UA) NEG NEG Urine Ketones NEG NEG Urine Occult Blood NEG NEG Urine Nitrite NEG NEG Urine Bilirubin NEG NEG Urine Urobilinogen NEG NEG Urine Leukocyte Esterase MODERATE NEG Urine WBC (Auto) 5-10 0-5 /hpf Urine RBC (Auto) 0-4 0-4 /hpf Urine Hyaline Casts (Auto) 1-5 0-5 /lpf Urine Epithelial Cells (Auto) >30 0-5 /lpf Urine Bacteria (Auto) 1+ NEG White Blood Count 14.73 4.8-10.8 K/uL Red Blood Count 5.28 4.2-5.4 M/uL Hemoglobin 17.1 12.0-16.0 g/dL Hematocrit 48.8 37-47 % Mean Corpuscular Volume 92.4 80-100 fL Mean Corpuscular Hemoglobin 32.4 25-34 pg Mean Corpuscular Hemoglobin Concent 35.0 32-36 g/dl Platelet Count 318 130-400 K/uL Mean Platelet Volume 10.5 7.4-10.4 fL Neutrophils (%) (Auto) 79.9 % Lymphocytes (%) (Auto) 11.7 % Monocytes (%) (Auto) 7.3 % Eosinophils (%) (Auto) 0.7 % Basophils (%) (Auto) 0.1 % Neutrophils # (Auto) 11.76 1.4-6.5 K/uL Lymphocytes # (Auto) 1.72 1.2-3.4 K/uL Monocytes # (Auto) 1.08 0.11-0.59 K/uL Eosinophils # (Auto) 0.10 0-0.5 K/uL Basophils # (Auto) 0.02 0-0.2 K/uL RDW Standard Deviation 46.0 36.4-46.3 fL RDW Coefficient of Variation 13.7 11.5-14.5 % Immature Granulocyte % (Auto) 0.3 % Immature Granulocyte # (Auto) 0.05 0.00-0.02 K/uL Erythrocyte Sedimentation Rate 9 0-21 mm/hr Sodium Level 136 136-145 mmol/L Potassium Level 3.4 3.5-5.1 mmol/L Chloride Level 100 98-107 mmol/L Carbon Dioxide Level 27 21-32 mmol/L Anion Gap 9.0 3-11 mmol/L Blood Urea Nitrogen 39 7-18 mg/dl Creatinine 1.30 0.60-1.20 mg/dl Est Creatinine Clear Calc Drug Dose 25.8 ml/min Estimated GFR () 42.4 Estimated GFR (Non- 36.6 BUN/Creatinine Ratio 30.2 10-20 Random Glucose 127 70-99 mg/dl Calcium Level 11.0 8.5-10.1 mg/dl Phosphorus Level 1.4 2.5-4.9 mg/dl Magnesium Level 2.1 1.8-2.4 mg/dl Total Bilirubin 0.7 0.2-1 mg/dl Aspartate Amino Transf (AST/SGOT) 24 15-37 U/L Alanine Aminotransferase (ALT/SGPT) 30 12-78 U/L Alkaline Phosphatase 81 45-117 U/L Total Creatine Kinase 43 26-192 U/L Creatine Kinase MB < 0.5 0.5-3.6 ng/ml Creatine Kinase MB Ratio 0-3.0 Troponin I < 0.015 0-0.045 ng/ml C-Reactive Protein < 0.29 0-0.29 mg/dl Pro-B-Type Natriuretic Peptide 320 0-1800 pg/ml Total Protein 6.7 6.4-8.2 gm/dl Albumin 3.4 3.4-5.0 gm/dl Globulin 3.3 2.5-4.0 gm/dl Albumin/Globulin Ratio 1.0 0.9-2 Lipase 216 73-393 U/L Bedside Lactic Acid Venous 3.74 0.90-1.70 mmol/L Prothrombin Time 12.4 9.0-12.0 SECONDS Prothromb Time International Ratio 1.2 0.9-1.1 Activated Partial Thromboplast Time 27.5 21.0-31.0 SECONDS Partial Thromboplastin Ratio 1.1 Test 09/11/16 00:18 09/11/16 06:23 Range/Units Sodium Level 138 141 136-145 mmol/L Potassium Level 3.1 3.2 3.5-5.1 mmol/L Chloride Level 104 110 98-107 mmol/L Carbon Dioxide Level 24 24 21-32 mmol/L Anion Gap 10.0 7.0 3-11 mmol/L Blood Urea Nitrogen 33 28 7-18 mg/dl Creatinine 1.10 0.90 0.60-1.20 mg/dl Est Creatinine Clear Calc Drug Dose 30.5 37.3 ml/min Estimated GFR () 51.9 66.2 Estimated GFR (Non- 44.8 57.1 BUN/Creatinine Ratio 30.0 31.4 10-20 Random Glucose 107 89 70-99 mg/dl Lactic Acid Level 3.5 1.4 0.4-2.0 mmol/L Calcium Level 9.6 8.6 8.5-10.1 mg/dl Parathyroid Hormone (Intact) 52.0 11.1-79.5 pg/mL White Blood Count 11.88 4.8-10.8 K/uL Red Blood Count 4.56 4.2-5.4 M/uL Hemoglobin 14.5 12.0-16.0 g/dL Hematocrit 42.2 37-47 % Mean Corpuscular Volume 92.5 80-100 fL Mean Corpuscular Hemoglobin 31.8 25-34 pg Mean Corpuscular Hemoglobin Concent 34.4 32-36 g/dl Platelet Count 248 130-400 K/uL Mean Platelet Volume 10.2 7.4-10.4 fL Neutrophils (%) (Auto) 67.5 % Lymphocytes (%) (Auto) 20.8 % Monocytes (%) (Auto) 9.8 % Eosinophils (%) (Auto) 1.5 % Basophils (%) (Auto) 0.1 % Neutrophils # (Auto) 8.03 1.4-6.5 K/uL Lymphocytes # (Auto) 2.47 1.2-3.4 K/uL Monocytes # (Auto) 1.16 0.11-0.59 K/uL Eosinophils # (Auto) 0.18 0-0.5 K/uL Basophils # (Auto) 0.01 0-0.2 K/uL RDW Standard Deviation 45.9 36.4-46.3 fL RDW Coefficient of Variation 13.6 11.5-14.5 % Immature Granulocyte % (Auto) 0.3 % Immature Granulocyte # (Auto) 0.03 0.00-0.02 K/uL Prothrombin Time 13.0 9.0-12.0 SECONDS Prothromb Time International Ratio 1.2 0.9-1.1 Phosphorus Level 1.3 2.5-4.9 mg/dl Total Bilirubin 1.1 0.2-1 mg/dl Direct Bilirubin 0.2 0-0.2 mg/dl Aspartate Amino Transf (AST/SGOT) 15 15-37 U/L Alanine Aminotransferase (ALT/SGPT) 23 12-78 U/L Alkaline Phosphatase 67 45-117 U/L Total Protein 5.0 6.4-8.2 gm/dl Albumin 2.4 3.4-5.0 gm/dl Microbiology Results 09/10/16 Blood Culture, Received Pending 09/10/16 Blood Culture, Received Pending 09/10/16 Urine Culture - Preliminary, Resulted Group B Beta Strep Assessment and Plan Patient 89-year-old female the patient is an 89-year-old female that presented to the ED status post fall. When brought to the ED her daughter states that was confused and seems a little altered from her baseline. During evaluation patient was sent for chest x-ray, head CT, as well as abdominal CT. There was some evidence of diverticulosis but no distinct evidence of diverticulitis on abdominal imaging. After evaluating the patient today it appears that her fall was mostly mechanical based on the fact that she slipped in her bathroom on a wet floor. She does state a previous incident where she had some vertigo and doesn't even know how she did fall, but in this instance she said that there was no lightheadedness or dizziness or any other knowledgeable contribution other than a mechanical fall. Her daughter did bring her in does not in fact lives with her, or see her frequently so it is difficult to assess whether she is a reliable source for her baseline mental status. The patient does seem to have an element of depression stating that she doesn't want to go home because of her 's recent passing, so tomorrow we will assess the patient for some geriatric depression. The patient's son is out of town right now so I think it would be reasonable for her to go to a rehabilitation facility upon discharge. Otherwise the patient currently seems medically stable and we will discontinue her antibiotics. 1) Mechanical Fall - Patient slipped on wet floor with no loss of consciousness - No obvious trauma and no complaints of pain - PT/OT Evaluation - Possible need to rehab after discharge - Denies any head trauma, and Head CT negative 2) Confusion/ AMS - Patient currently A&O x 3 - Head CT Negative - Some element of Geriatric Depression 2/2 of - Consider followup with PCP on depression and discussion with family 3) Diverticulosis - CT scan shows acute diverticulosis - Leukocytosis most likely 2/2 demargination from trauma - D/C Levaquin and Metronidazole - Regular Diet 4) Constipation - Miralax 17g daily 5) Meningioma - Visible on CT scan - Stable 6) Hypertension - Currently holding home Lisinopril/HCTZ - Blood pressure stable 7) Elevated Lactic Acid - Resolved - Within normal limits (1.4) this morning 8) Hypercalcemia - Resolved 9) Hypokalemia - On diuretics regularly - Replaced with IV fluids this morning - Recheck CMP tomorrow morning 9) DVT PPx - Rivaroxaban (history of DVT) 10) Code Status - Full Resuscitation Resident Physician Supervision Note: I interviewed and examined the patient. Discussed with Dr. Dorman and agree with findings and plan as documented in the note. Any exceptions or clarifications are listed here: None Documented By: Josh Marquez feeling ok. thinks fall was just slipping on water. no abdominal pain. notes lives alone but family nearby, but the family that lives sonia is currently away on vacation. notes they're calling to check in on her and know she's OK. vitals notednad breathign unlabored no pallor or icterus abd soft nd nt no masses fall - appearing mechanical, but PT recommending rehab. agree. constipation - no evidence of diverticulitis Resident Tracking Resident Involvement: Resident Care Provided Care Provided: Adult Hospital Medicine
[2016-09-11 19:31] VITALS: BP 99/60; PULSE 79; TEMP 36.7; O2SAT 90
[2016-09-12] VITALS: O2SAT 97
[2016-09-12 00:18] VITALS: BP 101/58; PULSE 81; TEMP 36.9; O2SAT 93
[2016-09-12 04:00] VITALS: BP_SYST 99; BP_DIAS 64; BP_DIAS 94; PULSE 82; TEMP 36.6; O2SAT 97
[2016-09-12 07:32] VITALS: BP 95/62; PULSE 84; TEMP 36.5; O2SAT 97
[2016-09-12] MEDS: POLYETHYLENE (MIRALAX) 17 GM PACK PO SCH (08:06)
[2016-09-12] MEDS ORDERED: POTASSIUM CHLORIDE 10 MEQ TABCR PO ONE (08:30)
--- NOTE | 2016-09-12 09:42 | Clinical Documentation Query ---
CLINICAL DOCUMENTATION QUERY 89 year old female who presents to the Emergency Room with complaints of intermittent falls & weakness. Query #1/2 In your clinical opinion is this patient being managed for: ( x ) ARCADIO in setting of dehydration treated with IV Hydration. ( ) Other explanation of clinical findings (Please Explain) ( ) Unable to determine (Please Define) ( ) Need to Discuss ( ) Not Agree The medical record reflects the following clinical findings, treatment, and risk factors. Clinical Indicators: Presents with dry mucous membranes, BUN 39, Creatinine 1.30, GFR 36.6. After IV hydration BUN 28, Creatinine 0.90, GFR 57.1. Reports of decreased PO intake by caregiver. Treatment: IVF bolus x2, IV primary with K+, IV electrolyte replacement, daily PRP's, Risk Factors: Age, Diverticulosis, dehydration Query #2/2 The H&P did note metabolic encephalopathy was causing disorientation. She was note to be oriented to person only. In your clinical opinion is this patient being managed for: ( ) Metabolic encephalopathy in setting of dehydration, ARCADIO and associated electrolyte imbalances ( ) Not Agree Please clarify and document your clinical opinion in the progress notes and discharge summary. Terms such as "probable", "suspected", "likely", "questionable", "possible", or "still to be ruled out" are acceptable. IF IN AGREEMENT, YOU MUST DOCUMENT ABOVE DIAGNOSTIC STATEMENT IN DAILY PROGRESS NOTES AND DISCHARGE SUMMARY. This document is not part of the patient's record. Thank You, eJff Espinal, RN [phone]
[2016-09-12] MEDS ORDERED: AMOXICILLIN 500 MG CAP PO ONE (10:00)
[2016-09-12 13:11] LABS: BASO % 0.2 %; BASO ABS # 0.02 K/uL (0-0.2); COMPLETE YES; EOS % 3.3 %; HEMATOCRIT 41.4 % (37-47); IG% 0.2 %; LYMPH % 16.6 %; LYMPH ABS # 1.37 K/uL (1.2-3.4); MEAN CELL VOLUME 94.5 fL (80-100); MEAN CORPUSCULAR HEMOGLOBIN 31.7 pg (25-34); MEAN CORPUSCULAR HGB CONC 33.6 g/dl (32-36); MEAN PLATELET VOLUME 10.2 fL (7.4-10.4); MONO % 8.6 %; NEUT % 71.1 %; PLATELET COUNT 194 K/uL (130-400); RED BLOOD COUNT 4.38 M/uL (4.2-5.4); WHITE BLOOD COUNT 8.27 K/uL (4.8-10.8)
[2016-09-12 13:53] LABS: BUN/CREATININE RATIO 18.1 (10-20); CALCIUM 8.7 mg/dl (8.5-10.1); CREATININE 0.77 mg/dl (0.60-1.20); POTASSIUM 3.8 mmol/L (3.5-5.1)
[2016-09-12] MEDS: AMOXICILLIN 500 MG CAP PO SCH ×2 (14:54→19:37)
[2016-09-12 15:07] VITALS: BP 112/65; PULSE 79; TEMP 36.6; O2SAT 96
--- NOTE | 2016-09-12 17:44 | Family Medicine Progress Note ---
Progress Note Date of Service Sep 12, 2016. Subjective Pt evaluation today including: conversation w/ patient, physical exam, chart review, lab review, review of studies Pain: no pain reported this morning Voiding: no voiding problems, no incontinence Constitutional: + fatigue, No fever, No chills Respiratory: No cough, No wheezing, No shortness of breath Cardiovascular: No chest pain, No palpitations Abdomen: No pain, No nausea, No vomiting, No diarrhea, No constipation Female : + urinary frequency, No dysuria, No hematuria, No incontinence Medications Current Inpatient Medications Medications (Trade) Dose Ordered Sig/Jacqueline Route Start Time Stop Time Status Last Admin Dose Admin Ioversol (Optiray 320) 100 ml UD PRN IV 09/10/16 20:45 09/14/16 20:44 Acetaminophen (Tylenol Tab) 650 mg Q4H PRN PO 09/10/16 23:45 10/10/16 23:44 Ondansetron HCl (Zofran Inj) 4 mg Q6H PRN IV 09/10/16 23:45 10/10/16 23:44 Rivaroxaban (Xarelto Tab) 20 mg DAILY@1800 PO 09/11/16 18:00 10/11/16 17:59 09/11/16 17:21 20 MG Tramadol HCl (Ultram Tab) 50 mg Q8H PRN PO 09/11/16 00:00 10/11/16 00:00 09/11/16 16:04 50 MG Polyethylene (Miralax Powder Packet) 17 gm DAILY PO 09/12/16 09:00 10/12/16 08:59 09/12/16 08:06 17 GM Amoxicillin (Amoxil Cap) 500 mg TID PO 09/12/16 14:00 09/17/16 13:59 09/12/16 14:54 500 MG Objective Vital Signs Date Time Temp Pulse Resp B/P (MAP) Pulse Ox O2 Delivery O2 Flow Rate FiO2 09/12/16 16:00 Room Air 09/12/16 15:07 36.6 79 16 112/65 (81) 96 Room Air 09/12/16 08:00 Room Air 09/12/16 07:32 36.5 84 16 95/62 (73) 97 Room Air 09/12/16 04:00 36.6 82 18 99/64 (76) 97 Room Air 09/12/16 04:00 36.6 82 18 99/94 (96) 97 Room Air 09/12/16 00:18 36.9 81 18 101/58 (72) 93 Room Air 09/12/16 00:00 97 Room Air 09/11/16 19:31 36.7 79 20 99/60 (73) 90 Room Air 09/11/16 18:25 Room Air Physical Exam General Appearance: WD/WN, no apparent distress Respiratory/Chest: chest non-tender, lungs clear, normal breath sounds Cardiovascular: regular rate, rhythm, no edema, no gallop Abdomen: normal bowel sounds, non tender, soft Extremities: no calf tenderness Neurologic/Psychiatric: alert, oriented x 3, + depressed affect Laboratory Results Results Past 24 Hours Test 09/12/16 12:59 Range/Units White Blood Count 8.27 4.8-10.8 K/uL Red Blood Count 4.38 4.2-5.4 M/uL Hemoglobin 13.9 12.0-16.0 g/dL Hematocrit 41.4 37-47 % Mean Corpuscular Volume 94.5 80-100 fL Mean Corpuscular Hemoglobin 31.7 25-34 pg Mean Corpuscular Hemoglobin Concent 33.6 32-36 g/dl Platelet Count 194 130-400 K/uL Mean Platelet Volume 10.2 7.4-10.4 fL Neutrophils (%) (Auto) 71.1 % Lymphocytes (%) (Auto) 16.6 % Monocytes (%) (Auto) 8.6 % Eosinophils (%) (Auto) 3.3 % Basophils (%) (Auto) 0.2 % Neutrophils # (Auto) 5.88 1.4-6.5 K/uL Lymphocytes # (Auto) 1.37 1.2-3.4 K/uL Monocytes # (Auto) 0.71 0.11-0.59 K/uL Eosinophils # (Auto) 0.27 0-0.5 K/uL Basophils # (Auto) 0.02 0-0.2 K/uL RDW Standard Deviation 49.4 36.4-46.3 fL RDW Coefficient of Variation 14.4 11.5-14.5 % Immature Granulocyte % (Auto) 0.2 % Immature Granulocyte # (Auto) 0.02 0.00-0.02 K/uL Sodium Level 141 136-145 mmol/L Potassium Level 3.8 3.5-5.1 mmol/L Chloride Level 111 98-107 mmol/L Carbon Dioxide Level 25 21-32 mmol/L Anion Gap 5.0 3-11 mmol/L Blood Urea Nitrogen 14 7-18 mg/dl Creatinine 0.77 0.60-1.20 mg/dl Est Creatinine Clear Calc Drug Dose 43.6 ml/min Estimated GFR () 79.9 Estimated GFR (Non- 68.9 BUN/Creatinine Ratio 18.1 10-20 Random Glucose 112 70-99 mg/dl Calcium Level 8.7 8.5-10.1 mg/dl Phosphorus Level 2.0 2.5-4.9 mg/dl Total Bilirubin 0.7 0.2-1 mg/dl Aspartate Amino Transf (AST/SGOT) 21 15-37 U/L Alanine Aminotransferase (ALT/SGPT) 24 12-78 U/L Alkaline Phosphatase 65 45-117 U/L Total Protein 5.1 6.4-8.2 gm/dl Albumin 2.6 3.4-5.0 gm/dl Globulin 2.5 2.5-4.0 gm/dl Albumin/Globulin Ratio 1.0 0.9-2 25-Hydroxy Vitamin D Total 62.6 30-100 ng/ml Assessment and Plan The patient is an 89-year-old female that presented to the ED after a mechanical fall at home. The patient appears to be stable and in good health, and we currently have made a referral to [facility] for rehabilitation. The patient's urine culture grew group B strep, and along with the patient having complaints of urinary frequency we will treat her as having a urinary tract infection with amoxicillin 500 mg 3 times a day for 3 days. The patient also has a depressed affect, and was frequently referring to the fact that she did think she would live this long and to that of her 's . Based on the physical therapy recommendation on inpatient rehabilitation, we are currently looking for facilities for placement for the patient. 1) Mechanical Fall - Patient slipped on wet floor with no loss of consciousness - No obvious trauma and no complaints of pain - PT/OT - recommend inpatient rehabilitation - Denies any head trauma, and Head CT negative 2) Confusion/ AMS - Patient currently A&O x 3 - Head CT Negative - Some element of Geriatric Depression 2/2 of - Consider followup with PCP on depression and discussion with family 3) Diverticulosis - CT scan shows acute diverticulosis - Leukocytosis initially was most likely 2/2 demargination from trauma - Leukocytosis now resolved - D/C Levaquin and Metronidazole - Regular Diet 4) Constipation - Miralax 17g daily 5) Meningioma - Visible on CT scan - Stable 6) Hypertension - Currently holding home Lisinopril/HCTZ - Blood pressure stable 7) Elevated Lactic Acid - Resolved - Within normal limits (1.4) this morning 8) Hypercalcemia - Resolved 9) Hypokalemia - 3.8 this morning and resolved - On diuretics regularly - Replaced with IV fluids this morning 10) DVT PPx - Rivaroxaban (history of DVT) 11) Code Status - Full Resuscitation 12) Disposition - [facility] Resident Physician Supervision Note: I interviewed and examined the patient. Discussed with Dr. Dorman and agree with findings and plan as documented in the note. Any exceptions or clarifications are listed here: None Documented By: Josh Marquez feeling ok no new complaints. was up a bunch of times w urinary frequency. discussed rehab she reticently accepts. vitals noted nad breathing unlabored no pallor or icterus simple cystitis - amoxicllin mavis - appearing likely due to dehydration - treated w IVF, improved constipation -med management for clarification purposes, w hindsight does not appear to have had diverticulitis at all deconditioning/weakness-for rehab DVT proph - anticoagulated Resident Tracking Resident Involvement: Resident Care Provided Care Provided: Adult Hospital Medicine
[2016-09-12] MEDS: RIVAROXABAN 20 MG TAB PO SCH (18:03)
[2016-09-12] MEDS ORDERED: LEVOFLOXACIN / D5W 750 MG in PREMIXED IN D5W 150 ML IV SCH (20:00)
[2016-09-13] VITALS: BP 96/59; PULSE 81; TEMP 36.7; O2SAT 96
[2016-09-13 07:47] VITALS: BP 93/53; PULSE 87; TEMP 37.1; O2SAT 93
[2016-09-13] MEDS: AMOXICILLIN 500 MG CAP PO SCH ×3 (09:18→19:27)
[2016-09-13] MEDS: POLYETHYLENE (MIRALAX) 17 GM PACK PO SCH (09:18)
[2016-09-13 11:28] VITALS: BP_SYST 107; BP_SYST 108; BP_SYST 118; BP_DIAS 62; BP_DIAS 69; BP_DIAS 75; PULSE 90; PULSE 91; PULSE 92
[2016-09-13 15:01] VITALS: BP 107/65; PULSE 81; TEMP 36.9; O2SAT 98
[2016-09-13 16:00] VITALS: O2SAT 98
--- NOTE | 2016-09-13 16:33 | Family Medicine Progress Note ---
Progress Note Date of Service Sep 13, 2016. Subjective Pt evaluation today including: conversation w/ patient, physical exam, chart review Pain: no pain reported this morning Voiding: no voiding problems, no incontinence Patient resting comfortably in bed this morning with no acute complaints overnight. Family in the room and discussed about the patient most recently not hydrating well enough at home. Agree the patient needs to get stronger and would be appropriate to send to inpatient rehabilitation. Patient states that she is just feeling tired. Denies any urinary complaints today. Daughter-in- law in the room states that she was complaining of frequency of urination prior to her 3 falls at home. Constitutional: No fever, No chills, No fatigue Respiratory: No cough, No sputum, No shortness of breath Cardiovascular: No chest pain, No palpitations Abdomen: No pain, No nausea, No vomiting, No diarrhea, No constipation Female : No dysuria, No urinary frequency, No incontinence Psychiatric: + depression symptoms Medications Current Inpatient Medications Medications (Trade) Dose Ordered Sig/Jacqueline Route Start Time Stop Time Status Last Admin Dose Admin Ioversol (Optiray 320) 100 ml UD PRN IV 09/10/16 20:45 09/14/16 20:44 Acetaminophen (Tylenol Tab) 650 mg Q4H PRN PO 09/10/16 23:45 10/10/16 23:44 Ondansetron HCl (Zofran Inj) 4 mg Q6H PRN IV 09/10/16 23:45 10/10/16 23:44 Rivaroxaban (Xarelto Tab) 20 mg DAILY@1800 PO 09/11/16 18:00 10/11/16 17:59 09/12/16 18:03 20 MG Tramadol HCl (Ultram Tab) 50 mg Q8H PRN PO 09/11/16 00:00 10/11/16 00:00 09/11/16 16:04 50 MG Polyethylene (Miralax Powder Packet) 17 gm DAILY PO 09/12/16 09:00 10/12/16 08:59 09/13/16 09:18 17 GM Amoxicillin (Amoxil Cap) 500 mg TID PO 09/12/16 14:00 09/17/16 13:59 09/13/16 14:24 500 MG Objective Vital Signs Date Time Temp Pulse Resp B/P (MAP) Pulse Ox O2 Delivery O2 Flow Rate FiO2 09/13/16 15:01 36.9 81 20 107/65 (79) 98 Room Air 09/13/16 11:28 91 107/62 (77) 90 118/75 (89) 92 108/69 (82) 09/13/16 09:31 Room Air 09/13/16 07:47 37.1 87 20 93/53 (66) 93 09/13/16 00:00 Room Air 09/13/16 00:00 36.7 81 20 96/59 (71) 96 Room Air 09/12/16 16:00 Room Air Physical Exam General Appearance: WD/WN, no apparent distress Eyes: normal inspection, sclerae normal Respiratory/Chest: chest non-tender, lungs clear, normal breath sounds Cardiovascular: regular rate, rhythm, no edema, no gallop Abdomen: normal bowel sounds, non tender, soft Neurologic/Psychiatric: alert, normal mood/affect, oriented x 3 Assessment and Plan Patient is an 89 year old female that presented to the ED with a fall. The patient was found to have a UTI and is currently being treated with Amoxicillin. The patient continues to complain of fatigue but denies all other complaints. Currently awaiting transport to [facility] for rehabilitation. 1) Mechanical Fall - Patient slipped on wet floor with no loss of consciousness - No obvious trauma and no complaints of pain - PT/OT - recommend inpatient rehabilitation - Denies any head trauma, and Head CT negative 2) Confusion/ AMS - Patient currently A&O x 3 - Head CT Negative - Some element of Geriatric Depression 2/2 of - Consider followup with PCP on depression and discussion with family 3) Diverticulosis - CT scan shows acute diverticulosis - Leukocytosis initially was most likely 2/2 demargination from trauma - Leukocytosis now resolved - D/C Levaquin and Metronidazole - Regular Diet 4) Constipation - Miralax 17g daily - Patient has had 1 documented bowel movement each of the last 3 days 5) Meningioma - Visible on CT scan - Stable 6) Hypertension - Currently holding home Lisinopril/HCTZ - Blood pressure stable 7) Elevated Lactic Acid - Resolved - Within normal limits (1.4) this morning 8) Hypercalcemia - Resolved 9) Hypokalemia - Resolved 10) DVT PPx - Rivaroxaban (history of DVT) 11) Code Status - Full Resuscitation 12) Disposition - Awaiting transport to [facility] Resident Physician Supervision Note: I interviewed and examined the patient. Discussed with Dr. Dorman and agree with findings and plan as documented in the note. Any exceptions or clarifications are listed here: None Documented By: Josh Marquez no new complaints. DIL who is primary caregiver present, dr dorman updated and discussed in my presence. for rehab. unfortunately we're told can't be arranged until thursday vitals noted nad breathing unlabored no pallor or icterus UTI - amox weakness/deconditniong/frequent falls - for rehab Resident Tracking Resident Involvement: Resident Care Provided Care Provided: Adult Hospital Medicine
[2016-09-13] MEDS: RIVAROXABAN 20 MG TAB PO SCH (17:52)
[2016-09-13 23:41] VITALS: BP 108/67; PULSE 86; TEMP 37.3; O2SAT 98
[2016-09-14 07:45] VITALS: BP 102/63; PULSE 77; TEMP 37; O2SAT 96
[2016-09-14 08:37] LABS: CREATININE 0.77 mg/dl (0.60-1.20)
[2016-09-14] MEDS: AMOXICILLIN 500 MG CAP PO SCH ×3 (08:47→20:50)
[2016-09-14] MEDS: POLYETHYLENE (MIRALAX) 17 GM PACK PO SCH (08:47)
[2016-09-14 15:01] VITALS: BP 107/69; PULSE 63; TEMP 36.7; O2SAT 97
--- NOTE | 2016-09-14 17:28 | Family Medicine Progress Note ---
Progress Note Date of Service Sep 14, 2016. Subjective Pt evaluation today including: conversation w/ patient, physical exam, chart review, lab review, review of studies Pain: No pain reported this morning Voiding: no voiding problems, no incontinence Patient resting comfortably in bed this morning with no acute complaints overnight. Patient denies any discomfort this morning and acknowledges that she is waiting for transport to an inpatient rehab facility Constitutional: No fever, No chills Respiratory: No cough, No shortness of breath Cardiovascular: No chest pain, No palpitations Abdomen: No pain, No nausea, No vomiting, No diarrhea, No constipation Female : No dysuria Medications Current Inpatient Medications Medications (Trade) Dose Ordered Sig/Jacqueline Route Start Time Stop Time Status Last Admin Dose Admin Ioversol (Optiray 320) 100 ml UD PRN IV 09/10/16 20:45 09/14/16 20:44 Acetaminophen (Tylenol Tab) 650 mg Q4H PRN PO 09/10/16 23:45 10/10/16 23:44 Ondansetron HCl (Zofran Inj) 4 mg Q6H PRN IV 09/10/16 23:45 10/10/16 23:44 Rivaroxaban (Xarelto Tab) 20 mg DAILY@1800 PO 09/11/16 18:00 10/11/16 17:59 09/13/16 17:52 20 MG Tramadol HCl (Ultram Tab) 50 mg Q8H PRN PO 09/11/16 00:00 10/11/16 00:00 09/11/16 16:04 50 MG Polyethylene (Miralax Powder Packet) 17 gm DAILY PO 09/12/16 09:00 10/12/16 08:59 09/14/16 08:47 17 GM Amoxicillin (Amoxil Cap) 500 mg TID PO 09/12/16 14:00 09/17/16 13:59 09/14/16 13:47 500 MG Objective Vital Signs Date Time Temp Pulse Resp B/P (MAP) Pulse Ox O2 Delivery O2 Flow Rate FiO2 09/14/16 15:01 36.7 63 20 107/69 (82) 97 09/14/16 09:18 Room Air 09/14/16 07:45 37.0 77 20 102/63 (76) 96 09/14/16 00:00 Room Air 09/13/16 23:41 37.3 86 18 108/67 (81) 98 Room Air 09/13/16 20:00 Room Air Physical Exam General Appearance: WD/WN, no apparent distress Respiratory/Chest: chest non-tender, lungs clear, normal breath sounds Cardiovascular: regular rate, rhythm, no edema, no gallop Abdomen: normal bowel sounds, non tender, soft Neurologic/Psychiatric: alert, normal mood/affect, oriented x 3 Laboratory Results Results Past 24 Hours Test 09/14/16 07:25 Range/Units Creatinine 0.77 0.60-1.20 mg/dl Est Creatinine Clear Calc Drug Dose 43.6 ml/min Estimated GFR () 79.9 Estimated GFR (Non- 68.9 Assessment and Plan Patient is an 89 year old female that presented with weakness and a fall. The patient was believed to have a UTI and was treated with Amoxicillin x 3 days ( Last dose 09/15 in AM). Patient is improving but based on PT/OT assessment will require inpatient rehab placement. Otherwise medically stable and ready for discharge. 1) Mechanical Fall - Patient slipped on wet floor with no loss of consciousness - No obvious trauma and no complaints of pain - PT/OT - recommend inpatient rehabilitation - Denies any head trauma, and Head CT negative 2) Confusion/ AMS - Patient currently A&O x 3 - Head CT Negative - Some element of Geriatric Depression 2/2 of - Consider followup with PCP on depression and discussion with family 3) Diverticulosis - CT scan shows acute diverticulosis - Leukocytosis initially was most likely 2/2 demargination from trauma - Leukocytosis now resolved - D/C Levaquin and Metronidazole (Initially received one day of treatment) - Tolerating Regular Diet 4) Constipation - Miralax 17g daily 5) Meningioma - Visible on CT scan - Stable 6) Hypertension - Currently holding home Lisinopril/HCTZ - Blood pressure stable - Continue to hold on discharge with plan on following up with PCP or resuming at [facility] 7) Elevated Lactic Acid - Resolved 8) Hypercalcemia - Resolved 9) Hypokalemia - Resolved 10) DVT PPx - Rivaroxaban (history of DVT) 11) Code Status - Full Resuscitation 12) Disposition - Awaiting transport to [facility] Resident Physician Supervision Note: I interviewed and examined the patient. Discussed with [Liudmila] and agree with findings and plan as documented in the note. Any exceptions or clarifications are listed here: [None] Documented By: Josh Marquez feeling ok. no new complaints. waiting on bureaucracy to allow her to go to rehab. no new problems vitals noted nad breathing unlabored no pallor or icterus no neuro deficits weakness/falls - for rehab UTI - amox otherwise as above stable for rehab once approved/accepted - hopefully can go tomorrow Resident Tracking Resident Involvement: Resident Care Provided Care Provided: Adult Hospital Medicine
[2016-09-14] MEDS: RIVAROXABAN 20 MG TAB PO SCH (17:32)
[2016-09-14 23:38] VITALS: BP 109/70; PULSE 75; TEMP 37; O2SAT 97
[2016-09-15 06:35] LABS: BUN/CREATININE RATIO 15.8 (10-20); CALCIUM 8.9 mg/dl (8.5-10.1); CREATININE 0.75 mg/dl (0.60-1.20); MAGNESIUM 2.1 mg/dl (1.8-2.4); POTASSIUM 3.5 mmol/L (3.5-5.1)
[2016-09-15 07:43] VITALS: BP 102/66; PULSE 83; TEMP 36.9; O2SAT 95
[2016-09-15] MEDS: POLYETHYLENE (MIRALAX) 17 GM PACK PO SCH (08:29)
[2016-09-15] MEDS: AMOXICILLIN 500 MG CAP PO SCH (08:29)
[2016-09-15] MEDS ORDERED: ESCITALOPRAM OXALATE 10 MG TAB PO ONE (10:33)
--- NOTE | 2016-09-15 15:31 | Family Medicine Progress Note ---
Progress Note Date of Service Sep 15, 2016. Subjective Pt evaluation today including: conversation w/ patient The patient was seen and examined at bedside. No acute overnight events. Pt is answering questions appropriately. Has no complaints. Is eating appropriately. Plan of care was described to the patient and all questions were answered. Constitutional: No fever, No chills, No sweats ENT: No hearing loss Respiratory: No cough, No sputum, No wheezing, No shortness of breath Cardiovascular: No chest pain Abdomen: No pain, No nausea, No vomiting, No diarrhea Female : No dysuria Psychiatric: No depression symptoms Skin: No rash Objective Physical Exam General Appearance: WD/WN, no apparent distress Eyes: normal inspection, EOMI Neck: supple Respiratory/Chest: chest non-tender, lungs clear, normal breath sounds, no respiratory distress, no accessory muscle use Cardiovascular: regular rate, rhythm, no edema, no gallop, no JVD, no murmur Abdomen: normal bowel sounds, non tender, soft, no organomegaly Extremities: normal range of motion, non-tender, normal inspection, no pedal edema, no calf tenderness Neurologic/Psychiatric: rv repairer II-XII nml as tested, no motor/sensory deficits, alert, oriented x 3, + pertinent finding (Pt appears sad, flat affect, denies taking pleasure in activities of daily living, does not care where she goes, denies SI or HI. ) Assessment and Plan 89F that presented with weakness and a fall. The patient was believed to have a UTI and was treated with Amoxicillin x 3 days (Last dose 09/15 in AM). Patient is improving but based on PT/OT assessment will require inpatient rehab placement. Otherwise medically stable and ready for discharge. Mechanical Fall - Patient slipped on wet floor with no loss of consciousness - No obvious trauma and no complaints of pain - PT/OT - recommend inpatient rehabilitation - Denies any head trauma, and Head CT negative Confusion/ AMS - Patient currently A&O x 3 - Head CT Negative - ? sec to . - ? underlying mild cognitive impairment. Depression - Seems to be depressed 2/2 of - Agreable to starting medication - Starting Lexapro 10mg daily. - Should also get outpatient counselling. Diverticulosis - CT scan shows diverticulosis - Leukocytosis (resolved) initially was most likely 2/2 demargination from trauma - D/C Levaquin and Metronidazole (Initially received one day of treatment) - continue Regular Diet Constipation - Miralax 17g daily Meningioma - Visible on CT scan - Stable HTN - Currently holding home Lisinopril/HCTZ - Blood pressure stable - Continue to hold on discharge with plan on following up with PCP or resuming at [facility] DVT PPx - Rivaroxaban (history of DVT) Dispo - Awaiting transport to [facility] Full Code Resident Involvement: Resident Care Provided Care Provided: Adult [facility] Medicine Reviewed: Pt Seen/Exam by Me History feeling tired his morning. doesn't eat much breakfast. wants to be left alone. Constitutional: denies: fever Respiratory: negative: short of breath Cardiovascular: denies chest pain General Appearance: no apparent distress Respiratory: lungs clear Cardiovascular: regular rate, rhythm Gastrointestinal: soft Neurologic/Psychiatric: alert, oriented x 3, other (flat affect. No SI, HI, Hallucinations) Skin Characteristics: warm/dry Assessment/Plan Resident Physician Supervision Note: I was present with Dr. De in bedside. I verified the pina history and physical, reviewed labs and image studies, discussed the case with the resident and agree with the findings and care plan.
[2016-09-15 16:00] VITALS: O2SAT 95
[2016-09-15 16:08] VITALS: BP 114/71; PULSE 80; TEMP 36.7; O2SAT 97
[2016-09-15] MEDS: RIVAROXABAN 20 MG TAB PO SCH (18:15)
[2016-09-16 00:17] VITALS: BP 117/72; PULSE 87; TEMP 36.7; O2SAT 95
[2016-09-16 07:10] VITALS: BP 99/63; PULSE 77; TEMP 36.9; O2SAT 96
[2016-09-16 07:36] LABS: BUN/CREATININE RATIO 21.3 (10-20); CALCIUM 8.9 mg/dl (8.5-10.1); CREATININE 0.64 mg/dl (0.60-1.20); POTASSIUM 3.5 mmol/L (3.5-5.1)
[2016-09-16] MEDS: POLYETHYLENE (MIRALAX) 17 GM PACK PO SCH (07:37)
[2016-09-16] MEDS ORDERED: ESCITALOPRAM OXALATE 10 MG TAB PO SCH (09:00)
[2016-09-16] MEDS ORDERED: LXP10 PO (11:19)
--- NOTE | 2016-09-16 11:46 | Discharge Instructions ---
Discharge Instructions Date of Service Sep 16, 2016. Admission Reason for Admission: Acute Diverticulitis, Constipation, Hypercalcemia, Discharge Discharge Diagnosis / Problem: Mechanical Fall Discharge Goals Goal(s): Decrease discomfort, Improve function, Increase independence, Improve nutritional status Activity Recommendations Activity Limitations: resume your previous activity . Instructions / Follow-Up Instructions / Follow-Up You are being sent to [facility] where trained staff members will help your improve your strength. You have also been discharged on a new medication, Lexapro 10mg daily, that should help with your mood. We have also held your medication for high blood pressure. While in the hospital your blood pressure was low or normal. If your blood pressure elevates your primary care provider may wish to restart your blood pressure medication. Please follow up with your primary care doctor within one week. Please continue to take your other medications as scheduled, especially the Rivaroxaban. Current Hospital Diet Patient's current hospital diet: Regular Diet Discharge Diet Recommended Diet: Regular Diet Pending Studies Studies pending at discharge: no Medical Emergencies . Who to Call and When: Medical Emergencies: If at any time you feel your situation is an emergency, please call 911 immediately. . Non-Emergent Contact Non-Emergency issues call your: Primary Care Provider . . "Provider Documentation" section prepared by Heriberto De. . VTE Core Measure Inpt VTE Proph given/why not?: Other Anticoagulation (Rivaroxaban) Resident Involvement: Resident Care Provided Care Provided: Adult Hospital Medicine
--- NOTE | 2016-09-16 11:48 | Discharge Summary ---
Discharge Summary Date of Service Sep 16, 2016. (Heriberto De M.D.) Discharge Summary Admission Date: Sep 10, 2016 at 23:56 Discharge Date: Sep 16, 2016 [facility] Principal Diagnosis: Mechanical Fall Immunizations: Have You Had Influenza Vaccine: Yes History of Tetanus Vaccine?: Yes Tetanus Immunization Date: Jun 10, 2002 History of Pneumococcal: No History of Hepatitis B Vaccine: No Procedures: (RENAL)RETROPERITON COMP CLINICAL HISTORY: 89 years-old Female presenting with 1.3cm right renal lesion, recommended renal US. TECHNIQUE: Real-time grayscale and limited color Doppler ultrasound imaging of the kidneys and bladder was performed. COMPARISON: CT performed the previous day. FINDINGS: Right kidney: Normal echogenicity. Right kidney measures 9.0 cm. No hydronephrosis. 1.9 x 1.3 x 1.4 exophytic cyst in the interpolar region, which is anechoic and simple appearing. Left kidney: Normal echogenicity. Left kidney measures 10.4 cm. No hydronephrosis. 0.9 x 0.9 x 0.9 cm anechoic simple cyst at the lower pole. Bladder: No bladder wall thickening. Nonvisualization of ureteral jets. Other: None. IMPRESSION: 1. The clinically queried lesion in the right kidney is consistent with a simple cyst. Elevated density on CT could relate to volume averaging or minimal proteinaceous content. No suspicious renal mass. ANGIO ABD/PELVIS WITH CONTRAST CLINICAL HISTORY: Diffuse abdominal pain. Multiple falls. COMPARISON STUDY: No previous studies for comparison. TECHNIQUE: Helical axial images of the abdomen and pelvis were obtained during arterial phase following intravenous injection of 120 cc of Optiray 320 IV. Sagittal and coronal reconstructions were viewed as well as maximal intensity projections on an independent 3-D workstation. FINDINGS: Visualized portions of the lower chest demonstrate a moderate sized hiatal hernia. Pacer leads are incidentally noted. No pneumatosis, free air or portal venous gas is present. Arterial phase images of the liver, spleen, adrenal glands and pancreas are unremarkable. A 6 mm hypodense left renal lesion is too small to characterize. A 1.3 cm lesion within the midpole of the right kidney measures just above water attenuation. This is probably artifactual. There is no hydronephrosis. There are gallstones within the gallbladder. There is no evidence for a bowel obstruction. There is extensive sigmoid diameter. Ventricular system. There is no convincing evidence for acute diverticulitis although this exam is mildly compromised by motion artifact. There is equivocal infiltration adjacent to the distal descending and proximal sigmoid colon. The appendix is normal. There is a large amount stool within the rectum. There is no pericholecystic infiltration. No acute lumbar spine or pelvic fracture is identified. There is mild atherosclerotic plaque of the abdominal aorta and branch vessels. There is no significant stenosis. There is no dissection. IMPRESSION: 1. Mild atherosclerotic plaque of the abdominal aorta and branch vessels. No significant stenosis. No dissection. Unremarkable CTA of the abdomen and pelvis for age. 2. Large amount stool within the rectum. No bowel obstruction. 3. Extensive sigmoid diverticulosis. No definite evidence for acute diverticulitis. However, equivocal pericolonic infiltration at the junction of the descending colon and sigmoid colon. Mild acute diverticulitis would be difficult to exclude. No free air or abscess. 4. Cholelithiasis. 5. 1.3 cm right renal lesion. This likely reflects a cyst but measures above water attenuation. A follow-up nonemergent renal ultrasound is recommended. CHEST ONE VIEW PORTABLE CLINICAL HISTORY: Sepsis. COMPARISON STUDY: Chest radiograph March 20, 2013. 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 A moderate hiatal hernia is noted. Cardiac size is normal. There is no evidence of pulmonary edema. There is no consolidation. No pneumothorax or pleural effusion is identified. IMPRESSION: 1. No acute cardio pelvic findings. 2. Moderate sized hiatal hernia. CT OF THE HEAD WITHOUT CONTRAST CLINICAL HISTORY: Fall. COMPARISON STUDY: MRI of the brain May 22, 2010. TECHNIQUE: Helical axial images of the head were obtained without IV contrast. Automated exposure control was utilized for the study. A dose lowering technique was utilized adhering to the principles of ALARA. FINDINGS: No acute intracranial hemorrhage is present. A heavily calcified extra-axial mass with suprasellar extension is similar to MRI of May 22, 2010. This measures 2.2 x 1.8 cm. There are no additional intracranial masses. Ventricular system is stable. Basilar cisterns are patent. White matter hypodensity suggests small vessel disease. There are no findings to suggest acute dural sinus thrombosis or acute territorial infarct. There is no calvarial fracture. There is mucosal thickening with secretions within the right sphenoid sinus and right posterior ethmoid air cells. This was shown on prior MRI. This is likely chronic. IMPRESSION: 1. No acute intracranial findings. 2. No significant change in the heavily calcified extra-axial mass since MRI of May 22, 2010. This is consistent with a planum sphenoidale meningioma. 3. No calvarial fracture. 4. Right sphenoid and right posterior ethmoid sinusitis which is likely chronic. (Heriberto De M.D.) Medication Reconciliation New Medications: Escitalopram Oxalate (Escitalopram Oxalate) 10 Mg Tab 10 MG PO QAM for 30 Days, #30 TAB Continued Medications: Ergocalciferol (Vitamin D 86057 Unit) 50,000 Unit Cap 60225 UNIT PO WK, CAP Rivaroxaban (Xarelto) 20 Mg Tab 20 MG PO DAILY Tramadol (Ultram) 50 Mg Tab 50 MG PO Q8H PRN for Pain, TAB Discontinued Medications: Hctz/Lisinopril (Lisinopril/Hctz 10/12.5 Mg) 1 Ea Tab 1 TAB PO DAILY, TAB Discharge Exam The patient was seen and examined at bedside. No acute overnight events. Pt appears to have a better mood than yesterday. Is talking about horses and events in her earlier life. Pt even smiled. Denied SI and HI. Patient is resting comfortably in bed. Denies having any pain. Eating and urinating well. (pt reports she is not a breakfast person). Plan of care was described to the patient and all questions were answered. Review of Systems: Constitutional: No fever, No chills, No weight loss, No weakness Respiratory: No cough, No sputum, No wheezing, No shortness of breath, No dyspnea on exertion Abdomen: No nausea, No vomiting, No diarrhea, No constipation Musculoskeletal: No joint pain Genitourinary - Female: No dysuria Endocrine: No fatigue Integumentary: No rash Physical Exam: General Appearance: WD/WN, no apparent distress Eyes: PERRL Neck: supple Respiratory/Chest: chest non-tender, lungs clear, normal breath sounds, no respiratory distress, no accessory muscle use Cardiovascular: regular rate, rhythm, no edema, no gallop, no JVD, no murmur Abdomen / GI: normal bowel sounds, non tender, soft, no organomegaly, no pulsatile mass, normal rectal exam, occult blood negative Extremities: normal inspection, no calf tenderness, no pedal edema, normal range of motion Neurologic/Psychiatric: perfusionist II-XII nml as tested, no motor/sensory deficits , alert, oriented x 3 Skin: no rash (Heriberto De M.D.) mood is better today still not able to sleep at night while in the hospital. keeps getting disturbed every few hours Review of Systems: Constitutional: No fever Respiratory: No shortness of breath Cardiovascular: No chest pain Abdomen: No pain Physical Exam: General Appearance: no apparent distress ENT: + pertinent finding (hard of hearing) Respiratory/Chest: lungs clear, no respiratory distress Cardiovascular: regular rate, rhythm Neurologic/Psychiatric: alert, normal mood/affect, oriented x 3 Skin: warm/dry (Karen Agee M.D.) Hospital Course 89F that presented with weakness and a fall. The patient was believed to have a UTI and was treated with Amoxicillin x 3 days (Last dose 09/15 in AM). Patient is improving but based on PT/OT assessment will require inpatient rehab placement. Otherwise medically stable and ready for discharge. Update: Pt got approval to go to [facility] on 09/16/16. Major Issues Address during visit: Mechanical Fall - Patient slipped on wet floor with no loss of consciousness - No obvious trauma and no complaints of pain - PT/OT - recommend inpatient rehabilitation - Denies any head trauma, and Head CT negative Depressed Mood - Mood improved today, we will continue Lexapro 10mg daily on discharge. - We recommend outpatient counseling to improve mood. Diverticulosis - CT scan shows diverticulosis - Leukocytosis (resolved) initially was most likely 2/2 demargination from trauma - D/C Levaquin and Metronidazole (Initially received one day of treatment) Meningioma - Visible on CT scan - Stable Total Time Spent: Greater than 30 minutes This includes examination of the patient, discharge planning, medication reconciliation, and communication with other providers. (Heriberto De M.D.) Resident Physician Supervision Note: I was present with Dr. De in bedside. I verified the pina history and physical, reviewed labs and image studies, discussed the case with the resident and agree with the findings and care plan. Total Time Spent: Greater than 30 minutes (Karen Agee M.D.) Discharge Instructions Please refer to the electronic Patient Visit Report (Discharge Instructions) for additional information. (Heriberto De M.D.) Follow-Up Please follow up with Primary Care Provider in One week. (Heriberto De M.D.) Additional Copies To Alesia Montgomery; Bing Rivera, C.R.N.P Resident Involvement: Resident Care Provided Care Provided: Adult [facility] Medicine (Heriberto De M.D.)
[2016-09-16 12:07] VITALS: BP 99/63; PULSE 77; TEMP 36.9; O2SAT 96
== END 2016-09-16 14:36 | DRG 391 ==
LOC: EDBD 19:25 → C.EDA 19:26 → C.MED 23:56 → ENRESERV 09-11 00:16 → C.MED 09-16 03:05
PROVIDERS: ADMIT Hospitalist; ATTEND Family Medicine
DX: K57.90 Diverticulosis of intestine, part unspecified, without perforation or abscess without bleeding (principal); G93.41 Metabolic encephalopathy; E87.2 Acidosis; N39.0 Urinary tract infection, site not specified; R29.6 Repeated falls; I10 Essential (primary) hypertension; Z87.891 Personal history of nicotine dependence; I95.1 Orthostatic hypotension; D32.9 Benign neoplasm of meninges, unspecified; E87.6 Hypokalemia; T50.2X5A Adverse effect of carbonic-anhydrase inhibitors, benzothiadiazides and other diuretics, initial encounter; K59.00 Constipation, unspecified; Z86.718 Personal history of other venous thrombosis and embolism; Z86.711 Personal history of pulmonary embolism; B95.1 Streptococcus, group B, as the cause of diseases classified elsewhere; Y92.009 Unspecified place in unspecified non-institutional (private) residence as the place of occurrence of the external cause; Z95.0 Presence of cardiac pacemaker; F32.9 Major depressive disorder, single episode, unspecified

== ENCOUNTER → 2016-12-05 | Outpatient (CLI) | payer OTHER ==
[~2016-12-05] MED LIST changes: -LSN/10125 PO; +LXP10 PO; -PRED10TA PO
--- NOTE | 2016-12-05 08:53 | DIAGNOSTIC IMAGING REPORT ---
R RIBS UNILATERAL WITH PA CHEST HISTORY: 89 years-old Female RIB PAIN ON RIGHT SIDE acute right-sided rib and chest pain with altered mental status COMPARISON: Chest radiograph 09/10/2016, chest CT 09/10/2016 TECHNIQUE: Frontal view of the chest with 4 views of the right ribs FINDINGS: Cardiac silhouette is mildly enlarged. Left pectoral pacer is noted with leads overlying the right atrium and right ventricle. Moderate sized hiatal hernia with partially intrathoracic stomach. Atherosclerosis of the aorta. No pneumothorax or focal airspace consolidation. Mild blunting of the right costophrenic angle with linear subsegmental opacities suggest atelectasis. Acute nondisplaced fracture involves the anterolateral aspect of the right 10th rib as seen on image 1. No definite additional rib fracture identified. Degenerative changes are seen throughout the spine and right shoulder. IMPRESSION: 1. Acute nondisplaced fracture of the anterolateral right 10th rib. No pneumothorax. 2. Cardiomegaly without acute cardiopulmonary process. 3. Moderate hiatal hernia. The above report was generated using voice recognition software. It may contain grammatical, syntax or spelling errors. Electronically signed by: Tim Chris M.D. 12/05/2016 8:51 AM Dictated Date/Time: 12/05/2016 8:48 AM
== END | disposition home or self-care (01) ==
LOC: C.RADPV 08:19
PROVIDERS: ATTEND Nurse Practitioner Family
DX: S22.31XA Fracture of one rib, right side, initial encounter for closed fracture (principal); I51.7 Cardiomegaly; K44.9 Diaphragmatic hernia without obstruction or gangrene; X58.XXXA Exposure to other specified factors, initial encounter

== ENCOUNTER → 2017-01-02 | Outpatient (CLI) | payer OTHER ==
[~2017-01-02] MED LIST changes: +MRLP17X PO; +QUET1TAB91 PO; -TRAM-10 PO
[2017-01-02 08:57] LABS: BASO % 0.2 %; BASO ABS # 0.01 K/uL (0-0.2); COMPLETE YES; EOS % 2.6 %; HEMATOCRIT 38.1 % (37-47); IG% 0.2 %; LYMPH % 37.9 %; LYMPH ABS # 2.36 K/uL (1.2-3.4); MEAN CORPUSCULAR HEMOGLOBIN 30.7 pg (25-34); MONO % 12.1 %; PLATELET COUNT 297 K/uL (130-400); RED BLOOD COUNT 3.97 M/uL (4.2-5.4); WHITE BLOOD COUNT 6.22 K/uL (4.8-10.8)
[2017-01-02 09:03] LABS: ALT/SGPT 11 U/L (12-78); BLOOD UREA NITROGEN 16 mg/dl (7-18); BUN/CREATININE RATIO 23.2 (10-20); CALCIUM 9.7 mg/dl (8.5-10.1); CARBON DIOXIDE 28 mmol/L (21-32); CHLORIDE 108 mmol/L (98-107); CREATININE 0.71 mg/dl (0.60-1.20); GLUCOSE 81 mg/dl (70-99); POTASSIUM 3.5 mmol/L (3.5-5.1); SODIUM 144 mmol/L (136-145)
[2017-01-02 09:07] LABS: ALB/GLOB RATIO 0.9 (0.9-2); ALKALINE PHOSPHATASE 96 U/L (45-117); AST/SGOT 13 U/L (15-37)
== END ==
LOC: C.LABCC 08:44
PROVIDERS: ATTEND Internal Medicine
DX: D64.9 Anemia, unspecified (principal); R31.9 Hematuria, unspecified; Z79.899 Other long term (current) drug therapy; F03.90 Unspecified dementia, unspecified severity, without behavioral disturbance, psychotic disturbance, mood disturbance, and anxiety; R29.6 Repeated falls